=== PATIENT | male | born 1975 | race Caucasian/White ===

== ENCOUNTER 2017-04-09 22:31 | Inpatient (IN) | payer OTHER ==
[~2017-04-09] VITALS: Ht 180.3 cm; Wt 70.8 kg
[2017-04-10] VITALS (11 sets, daily range): BP systolic 110–140; BP diastolic 69–110
--- NOTE | 2017-04-10 01:11 | Emergency Room Report ---
History of Present Illness General Chief Complaint: General Complaint Source: Patient, Family Member Present Illness HPI 41YOM walk-in with request for "detox" from meth Roomate states didnt eat all weekend, was doing meth only, not sleeping Denies other medical problems Roomate states he has been having visual hallucinations, changed all his passwords, paranoid behavior Patient denies other drug use Endorses "really dehydrated," thirsty but not drinking anything. Allergies: Coded Allergies: No Known Allergies (Unverified , 04/09/17) Patient History Past Medical History: none Past Surgical History: none Pertinent Family History: none Social History: Reports: drug use Immunizations: UTD Reviewed Nursing Documentation: PMH: Agreed, PSxH: Agreed Review of Systems All Other Systems: negative except mentioned in HPI Physical Exam Vital Signs Date Time Temp Pulse Resp B/P (MAP) Pulse Ox O2 Delivery O2 Flow Rate FiO2 04/09/17 23:03 97.7 99 18 139/90 98 Room Air Sp02 EP Interpretation: reviewed, normal General Appearance: normal inspection, well appearing, no apparent distress, alert, GCS 15, non-toxic Head: normocephalic, atraumatic Eyes: bilateral eye PERRL, bilateral eye EOMI ENT: normal ENT inspection, hearing grossly normal, normal voice Neck: normal inspection, full range of motion, supple, no bony tend Respiratory: normal inspection, lungs clear, normal breath sounds, no respiratory distress, no retraction, no wheezing Cardiovascular #1: regular rate, rhythm, no edema Gastrointestinal: normal inspection, normal bowel sounds, non tender, soft, no guarding, no hernia Genitourinary: no CVA tenderness Musculoskeletal: normal inspection, back normal, normal range of motion, Arsenio' s Sign negative Neurologic: normal inspection, alert, oriented x3, responsive, cook chill technician III-XII nml as tested, speech normal Psychiatric: normal inspection, judgement/insight normal, mood/affect normal, no suicidal/homicidal ideation, no delusions Skin: normal inspection, normal color, no rash Procedures Critical Care Time Critical Care Time CC time 40 minutes 41YOM with visual hallucinations, generalized muscle pain Elevated troponin, CKMB ECG is NSR Utox positive for multiple substances ASA, heparin gtt started 2L NS given in ED CC time includes multiple reassessment bedside, review of labs, dosing of heparin, d/w hospitalist, possible Cardiology Cx Medical Decision Making Diagnostic Impression: Primary Impression: Behavioral change Additional Impressions: Amphetamine abuse Acute renal failure Qualified Codes: N17.9 - Acute kidney failure, unspecified Liver failure Qualified Codes: K72.00 - Acute and subacute hepatic failure without coma Non-ST elevated myocardial infarction ER Course VSS. Afebrile Patient NOT hallucinating now States feels more calm being in ED Denies SI, HI Doesnt have psych history Visual hallucinations likely meth related Labs: Acute liver failure, acute renal failure. K normal Elevated troponin >0.05 Was given ASA and started on heparin gtt Utox: amphet, benzos, MJ Was hydrated in ED 2L NS Admitted to ICU with Dr Guzman Serial troponin pending at time of 510am Patient remains chest pain/SOB free EKG Diagnostic Results Rate: normal Rhythm: NSR ST Segments: no acute changes ASA given to the pt in ED: No Rhythm Strip Diag. Results EP Interpretation: yes Rate: 67 Rhythm: NSR, no PVC's, no ectopy Chest X-Ray Diagnostic Results Chest X-Ray Diagnostic Results : Chest X-Ray Ordered: Yes # of Views/Limited/Complete: 1 View Indication: Chest Pain EP Interpretation: Yes Interpretation: no consolidation, no effusion, no pneumothorax, no acute cardiopulmonary disease Impression: No acute disease Electronically Signed by: Dr Shena Ji MD Last Vital Signs Date Time Temp Pulse Resp B/P (MAP) Pulse Ox O2 Delivery O2 Flow Rate FiO2 04/09/17 23:03 97.7 99 18 139/90 98 Room Air Status: improved Disposition: ADMITTED INPATIENT Condition: Critical Referrals: NOT CHOSEN IPA/,REFERRING (PCP) SHENA JI M.D. Apr 10, 2017 01:11
[2017-04-10 01:21] LABS: BASOPHILS % (AUTO) 0.5 % (0.0-2.0); EOSINOPHILS % (AUTO) 0.1 % (0.0-3.0); LYMPHOCYTES % (AUTO) 17.1 % (20.0-45.0); MEAN CORPUSCULAR HEMOGLOBIN 33.2 PG (27.0-31.0); MEAN CORPUSCULAR HGB CONC 35.8 G/DL (32.0-36.0); MEAN CORPUSCULAR VOLUME 93 FL (80-99); MEAN PLATELET VOLUME 5.9 FL (6.5-10.1); NEUTROPHILS % (AUTO) 68.3 % (45.0-75.0); PLATELET COUNT 306 K/UL (150-450); RED BLOOD COUNT 4.71 M/UL (4.70-6.10); RED CELL DISTRIBUTION WIDTH 11.3 % (11.6-14.8); WHITE BLOOD COUNT 14.5 K/UL (4.8-10.8)
[2017-04-10 02:01] LABS: ALANINE AMINOTRANSFERASE 254 U/L (12-78); ALBUMIN/GLOBULIN RATIO 1.2 (1.0-2.7); ANION GAP 20 (5-15); ASPARTATE AMINO TRANSFERASE 530 U/L (15-37); CALCIUM 7.5 MG/DL (8.5-10.1); CARBON DIOXIDE 24 MMOL/L (21-32); CHLORIDE 90 MMOL/L (98-107); CKMB 58.7 NG/ML (0.0-3.6); CREATININE 9.6 MG/DL (0.55-1.30); POTASSIUM 4.6 MMOL/L (3.5-5.1); SODIUM 134 MMOL/L (136-145); TOTAL PROTEIN 8.5 G/DL (6.4-8.2)
[2017-04-10] MEDS ORDERED: LORazepam Inj 2mg/ml 1ml IV ONE ×2 (04:00→05:45)
[2017-04-10] MEDS ORDERED: Heparin 5000 units/ml inj IV ONE (04:45)
[2017-04-10] MEDS ORDERED: Heparin 25,000u/D5W 500ml 500 ML IV SCH (04:45)
[2017-04-10] MEDS ORDERED: LORazepam Inj 2mg/ml 1ml IV PRN (06:45)
[2017-04-10] MEDS ORDERED: Mylanta II UD 30ml ORAL PRN (06:45)
[2017-04-10] MEDS ORDERED: Morphine Sulfate 2mg/ml Inj IVP PRN (06:45)
[2017-04-10] MEDS ORDERED: Miralax 17gm pkt ORAL PRN (06:45)
[2017-04-10] MEDS ORDERED: Zolpidem 5mg tab ORAL PRN (06:45)
[2017-04-10 08:32] LABS: ALANINE AMINOTRANSFERASE 195 U/L (12-78); ALBUMIN/GLOBULIN RATIO 1.1 (1.0-2.7); ANION GAP 18 (5-15); ASPARTATE AMINO TRANSFERASE 366 U/L (15-37); CALCIUM 6.5 MG/DL (8.5-10.1); CARBON DIOXIDE 21 MMOL/L (21-32); CHLORIDE 97 MMOL/L (98-107); GLOMERULAR FILTRATION RATE 6.5 mL/min (>60); MAGNESIUM 2.5 MG/DL (1.8-2.4); PHOSPHORUS 6.9 MG/DL (2.5-4.9); POTASSIUM 4.3 MMOL/L (3.5-5.1); SODIUM 136 MMOL/L (136-145); TOTAL PROTEIN 6.4 G/DL (6.4-8.2)
[2017-04-10 09:34] LABS: OSMOLALITY SERUM 317 mOsm/kg (297-317)
[2017-04-10] MEDS ORDERED: Heparin 5000 units/ml inj SUBQ SCH (10:00)
[2017-04-10 10:04] LABS: APPEARANCE,URINE CLOUDY; KETONES,URINE 1+ (NEGATIVE); LEUKOCYTE ESTERASE ,URINE NEGATIVE (NEGATIVE); NITRITE,URINE NEGATIVE (NEGATIVE); PH,URINE 5 (4.5-8.0); PROTEIN,URINE 3+ (NEGATIVE); UROBILINOGEN,URINE NORMAL MG/DL (0.0-1.0)
[2017-04-10] MEDS ORDERED: NKM (10:33)
[2017-04-10 10:41] LABS: AMORPHOUS SEDIMENT,UR MODERATE /LPF; BACTERIA,URINE FEW /HPF; SQUAMOUS EPITHELIAL CELL,UR FEW /LPF (NONE/OCC); WBC,URINE 0-2 /HPF (0 - 0)
--- NOTE | 2017-04-10 11:44 | Diagnostic Imaging Report ---
Indication: Chest pain Technique: One view of the chest Comparison: none Findings: Lungs and pleural spaces are clear. Heart size is normal. Impression: No acute process
--- NOTE | 2017-04-10 14:38 | History and Physical ---
History of Present Illness General Reason for Hospitalization: General Complaint Present Illness HPI 41YOM walk-in with request for "detox" from meth. He didn't eat all weekend, was doing meth only, not sleeping Denies other medical problems. He has been having visual hallucinations, changed all his passwords, paranoid behavior. Pt was found to be in renal failure and admitted to [facility] for further evaluation. Allergies: Coded Allergies: No Known Allergies (Unverified , 04/09/17) Medication History Scheduled No Known Medications* (NKM - No Known Medications*), 0 ., (Reported) Patient History Healthcare decision maker Resuscitation status Advanced Directive on File Past Medical/Surgical History Past Medical/Surgical History: (1) Amphetamine abuse Review of Systems All Other Systems: negative except mentioned in HPI Physical Exam General Appearance: WD/WN, no apparent distress HEENT: normocephalic, atraumatic Neck: non-tender, normal alignment Respiratory/Chest: chest wall non-tender, lungs clear Breasts: no masses Cardiovascular/Chest: normal peripheral pulses, normal rate Abdomen: normal bowel sounds Genitourinary/Rectal: normal genital exam Extremities: normal range of motion Last 24 Hour Vital Signs Date Time Temp Pulse Resp B/P (MAP) Pulse Ox O2 Delivery O2 Flow Rate FiO2 04/10/17 11:48 78 04/10/17 11:41 97.5 78 21 131/70 98 Room Air 04/10/17 11:36 77 04/10/17 10:47 98.1 76 21 122/78 96 Room Air 04/10/17 09:00 98.1 82 19 110/89 99 Room Air 04/10/17 07:20 97.7 90 22 122/69 96 Room Air 04/10/17 06:26 98.1 98 20 117/70 96 Room Air 04/10/17 05:56 98.1 92 16 127/83 97 Room Air 04/10/17 05:26 98.1 85 15 140/89 98 Room Air 04/10/17 04:30 98.1 82 16 127/110 98 Room Air 04/10/17 02:30 98.1 88 16 135/89 98 Room Air 04/10/17 00:30 98.1 95 16 130/85 99 Room Air 04/09/17 23:03 97.7 99 18 139/90 98 Room Air Intake and Output 04/10/17 04/11/17 19:00 07:00 Output Total 600 ml Balance -600 ml Output Urine Total 600 ml Laboratory Tests Test 04/10/17 00:45 04/10/17 05:05 04/10/17 07:44 04/10/17 09:30 White Blood Count 14.5 K/UL (4.8-10.8) H Red Blood Count 4.71 M/UL (4.70-6.10) Hemoglobin 15.6 G/DL (14.2-18.0) Hematocrit 43.7 % (42.0-52.0) Mean Corpuscular Volume 93 FL (80-99) Mean Corpuscular Hemoglobin 33.2 PG (27.0-31.0) H Mean Corpuscular Hemoglobin Concent 35.8 G/DL (32.0-36.0) Red Cell Distribution Width 11.3 % (11.6-14.8) L Platelet Count 306 K/UL (150-450) Mean Platelet Volume 5.9 FL (6.5-10.1) L Neutrophils (%) (Auto) 68.3 % (45.0-75.0) Lymphocytes (%) (Auto) 17.1 % (20.0-45.0) L Monocytes (%) (Auto) 14.0 % (1.0-10.0) H Eosinophils (%) (Auto) 0.1 % (0.0-3.0) Basophils (%) (Auto) 0.5 % (0.0-2.0) Activated Partial Thromboplast Time 30 SEC (23-33) Sodium Level 134 MMOL/L (136-145) L 136 MMOL/L (136-145) Potassium Level 4.6 MMOL/L (3.5-5.1) 4.3 MMOL/L (3.5-5.1) Chloride Level 90 MMOL/L (98-107) L 97 MMOL/L (98-107) L Carbon Dioxide Level 24 MMOL/L (21-32) 21 MMOL/L (21-32) Anion Gap 20 (5-15) H 18 (5-15) H Blood Urea Nitrogen 116 mg/dL (7-18) H 113 mg/dL (7-18) H Creatinine 9.6 MG/DL (0.55-1.30) H 9.0 MG/DL (0.55-1.30) H Estimat Glomerular Filtration Rate 6.0 mL/min (>60) 6.5 mL/min (>60) Glucose Level 104 MG/DL (74-106) 95 MG/DL (74-106) Calcium Level 7.5 MG/DL (8.5-10.1) L 6.5 MG/DL (8.5-10.1) L Total Bilirubin 0.9 MG/DL (0.2-1.0) 0.7 MG/DL (0.2-1.0) Aspartate Amino Transf (AST/SGOT) 530 U/L (15-37) H 366 U/L (15-37) H Alanine Aminotransferase (ALT/SGPT) 254 U/L (12-78) H 195 U/L (12-78) H Alkaline Phosphatase 113 U/L (46-116) 84 U/L (46-116) Total Creatine Kinase < 7 U/L (26-308) L 50191 U/L (26-308) H Creatine Kinase MB 58.7 NG/ML (0.0-3.6) H Creatine Kinase MB Relative Index 800.0 Troponin I 0.051 ng/mL (0.000-0.056) 0.041 ng/mL (0.000-0.056) Total Protein 8.5 G/DL (6.4-8.2) H 6.4 G/DL (6.4-8.2) Albumin 4.6 G/DL (3.4-5.0) 3.3 G/DL (3.4-5.0) L Globulin 3.9 g/dL 3.1 g/dL Albumin/Globulin Ratio 1.2 (1.0-2.7) 1.1 (1.0-2.7) Urine Opiates Screen Negative (NEGATIVE) Urine Barbiturates Screen Negative (NEGATIVE) Phencyclidine (PCP) Screen Negative (NEGATIVE) Urine Amphetamines Screen Positive (NEGATIVE) H Urine Benzodiazepines Screen Positive (NEGATIVE) H Urine Cocaine Screen Negative (NEGATIVE) Urine Marijuana (THC) Screen Positive (NEGATIVE) H Osmolality 317 mOsm/kg (297-317) Uric Acid 13.0 MG/DL (2.6-7.2) H Phosphorus Level 6.9 MG/DL (2.5-4.9) H Magnesium Level 2.5 MG/DL (1.8-2.4) H Free Thyroxine 1.29 NG/DL (0.10-1.46) Free Triiodothyronine Pending Cortisol Pending Urine Color Pale yellow Urine Appearance Cloudy Urine pH 5 (4.5-8.0) Urine Specific [place] 1.015 (1.005-1.035) Urine Protein 3+ (NEGATIVE) H Urine Glucose (UA) 1+ (NEGATIVE) H Urine Ketones 1+ (NEGATIVE) H Urine Occult Blood 5+ (NEGATIVE) H Urine Nitrite Negative (NEGATIVE) Urine Bilirubin Negative (NEGATIVE) Urine Urobilinogen Normal MG/DL (0.0-1.0) Urine Leukocyte Esterase Negative (NEGATIVE) Urine RBC 2-4 /HPF (0 - 0) H Urine WBC 0-2 /HPF (0 - 0) Urine Squamous Epithelial Cells Few /LPF (NONE/OCC) Urine Amorphous Sediment Moderate /LPF (NONE) H Urine Bacteria Few /HPF (NONE) Urine Eosinophils None seen Urine Osmolality 322 mOsm/kg (429-449) L Urine Random Sodium 34 MEQ/L (20-110) Urine Random Chloride 48 mmol/L (55-125) L Urine Potassium Timed 52 mmol/L (12-62) Height (Feet): 5 Height (Inches): 11.00 Weight (Pounds): 156 Medications Current Medications Medications (Trade) Dose Ordered Sig/Coral Route PRN Reason Start Time Stop Time Status Last Admin Dose Admin Acetaminophen (Tylenol) 650 mg Q4H PRN ORAL fever (temp>100.5 F) 04/10/17 06:45 05/10/17 06:44 Al Hydroxide/Mg Hydroxide (Mylanta II) 30 ml Q6H PRN ORAL dyspepsia 04/10/17 06:45 05/10/17 06:44 Clonidine HCl (Catapres) 0.1 mg Q4H PRN ORAL For High Blood Pressure 04/10/17 06:45 05/10/17 06:44 Dextrose (Dextrose 50%) STAT PRN IV Hypoglycemia 04/10/17 06:45 05/10/17 06:44 Heparin Sodium (Porcine) (Heparin 5000 units/ml) 5,000 units EVERY 12 HOURS SUBQ 04/10/17 21:00 05/10/17 20:59 Lorazepam (Ativan 2mg/ml 1ml) 0.5 mg Q4H PRN IV For Anxiety 04/10/17 06:45 04/17/17 06:44 Morphine Sulfate (Morphine Sulfate) 1 mg Q4H PRN IVP For Pain 04/10/17 06:45 04/17/17 06:44 Ondansetron HCl (Zofran) 4 mg Q6H PRN IVP Nausea & Vomiting 04/10/17 06:45 05/10/17 06:44 Polyethylene Glycol (Miralax) 17 gm HSPRN PRN ORAL Constipation 04/10/17 06:45 05/10/17 06:44 Sodium Chloride 1,000 ml @ 200 mls/hr Q5H IV 04/10/17 10:45 05/10/17 10:44 04/10/17 11:22 Zolpidem Tartrate (Ambien) 5 mg HSPRN PRN ORAL Insomnia 04/10/17 06:45 04/17/17 06:44 Assessment/Plan Problem List: (1) Acute encephalopathy ICD Codes: G93.40 - Encephalopathy, unspecified SNOMED: 1590657 (2) Acute renal failure ICD Codes: N17.9 - Acute kidney failure, unspecified SNOMED: 33963818 Qualifiers: Qualified Codes: N17.9 - Acute kidney failure, unspecified (3) Amphetamine abuse ICD Codes: F15.10 - Other stimulant abuse, uncomplicated SNOMED: 97484584 Assessment/Plan IV fluids check electrolytes cardiology to see dvt prophylaxis renal evaluation KEATON LABOY Apr 10, 2017 14:38
--- NOTE | 2017-04-10 15:49 | Consultation ---
Consult Note Consult Note Chief Complaint: General Complaint Source: Patient, Family Member Present Illness HPI 41YOM walk-in with request for "detox" from meth Roomate states didnt eat all weekend, was doing meth only, not sleeping Denies other medical problems Roomate states he has been having visual hallucinations, changed all his passwords, paranoid behavior Patient denies other drug use Endorses "really dehydrated," thirsty but not drinking anything. Allergies: Coded Allergies: No Known Allergies (Unverified , 04/09/17) Social History: Reports: drug use interviewed- examined- data reviewed Assessment/Plan acute renal failure- Rhabdo- Multi drug abuse abnormal lfts jones hydrate renal diet Phos binders monitor renal parameters ad CK avoid nephrotoxics GLENROY ALVAREZ Apr 10, 2017 15:49
--- NOTE | 2017-04-10 16:49 | Diagnostic Imaging Report ---
Indication: Abnormal renal function tests Technique: Grayscale and duplex images of the kidneys, retroperitoneum, and bladder were obtained. Comparison:None Findings: Right kidney measures 11.3 cm in length. Left kidney measures 11.9 cm in length. Both kidneys demonstrate normal echogenicity. No hydronephrosis. No focal abnormality. Normal inferior vena cava. Bladder is empty, contains a Mullins catheter. Impression: Negative for hydronephrosis Mullins catheter seen within empty bladder.
[2017-04-10] MEDS: D5NS 1,000 ML IV SCH ×2 (16:50→20:35)
--- NOTE | 2017-04-10 16:50 | Cardiology Progress Note ---
Assessment/Plan Assessment/Plan [id number] Objective Last 24 Hour Vital Signs Date Time Temp Pulse Resp B/P (MAP) Pulse Ox O2 Delivery O2 Flow Rate FiO2 04/10/17 16:04 74 04/10/17 11:48 78 04/10/17 11:41 97.5 78 21 131/70 98 Room Air 04/10/17 11:36 77 04/10/17 10:47 98.1 76 21 122/78 96 Room Air 04/10/17 09:00 98.1 82 19 110/89 99 Room Air 04/10/17 07:20 97.7 90 22 122/69 96 Room Air 04/10/17 06:26 98.1 98 20 117/70 96 Room Air 04/10/17 05:56 98.1 92 16 127/83 97 Room Air 04/10/17 05:26 98.1 85 15 140/89 98 Room Air 04/10/17 04:30 98.1 82 16 127/110 98 Room Air 04/10/17 02:30 98.1 88 16 135/89 98 Room Air 04/10/17 00:30 98.1 95 16 130/85 99 Room Air 04/09/17 23:03 97.7 99 18 139/90 98 Room Air Intake and Output 04/10/17 04/11/17 19:00 07:00 Output Total 600 ml Balance -600 ml Output Urine Total 600 ml Laboratory Tests Test 04/10/17 00:45 04/10/17 05:05 04/10/17 07:44 04/10/17 09:30 White Blood Count 14.5 K/UL (4.8-10.8) H Red Blood Count 4.71 M/UL (4.70-6.10) Hemoglobin 15.6 G/DL (14.2-18.0) Hematocrit 43.7 % (42.0-52.0) Mean Corpuscular Volume 93 FL (80-99) Mean Corpuscular Hemoglobin 33.2 PG (27.0-31.0) H Mean Corpuscular Hemoglobin Concent 35.8 G/DL (32.0-36.0) Red Cell Distribution Width 11.3 % (11.6-14.8) L Platelet Count 306 K/UL (150-450) Mean Platelet Volume 5.9 FL (6.5-10.1) L Neutrophils (%) (Auto) 68.3 % (45.0-75.0) Lymphocytes (%) (Auto) 17.1 % (20.0-45.0) L Monocytes (%) (Auto) 14.0 % (1.0-10.0) H Eosinophils (%) (Auto) 0.1 % (0.0-3.0) Basophils (%) (Auto) 0.5 % (0.0-2.0) Activated Partial Thromboplast Time 30 SEC (23-33) Sodium Level 134 MMOL/L (136-145) L 136 MMOL/L (136-145) Potassium Level 4.6 MMOL/L (3.5-5.1) 4.3 MMOL/L (3.5-5.1) Chloride Level 90 MMOL/L (98-107) L 97 MMOL/L (98-107) L Carbon Dioxide Level 24 MMOL/L (21-32) 21 MMOL/L (21-32) Anion Gap 20 (5-15) H 18 (5-15) H Blood Urea Nitrogen 116 mg/dL (7-18) H 113 mg/dL (7-18) H Creatinine 9.6 MG/DL (0.55-1.30) H 9.0 MG/DL (0.55-1.30) H Estimat Glomerular Filtration Rate 6.0 mL/min (>60) 6.5 mL/min (>60) Glucose Level 104 MG/DL (74-106) 95 MG/DL (74-106) Calcium Level 7.5 MG/DL (8.5-10.1) L 6.5 MG/DL (8.5-10.1) L Total Bilirubin 0.9 MG/DL (0.2-1.0) 0.7 MG/DL (0.2-1.0) Aspartate Amino Transf (AST/SGOT) 530 U/L (15-37) H 366 U/L (15-37) H Alanine Aminotransferase (ALT/SGPT) 254 U/L (12-78) H 195 U/L (12-78) H Alkaline Phosphatase 113 U/L (46-116) 84 U/L (46-116) Total Creatine Kinase < 7 U/L (26-308) L 32960 U/L (26-308) H Creatine Kinase MB 58.7 NG/ML (0.0-3.6) H Creatine Kinase MB Relative Index 800.0 Troponin I 0.051 ng/mL (0.000-0.056) 0.041 ng/mL (0.000-0.056) Total Protein 8.5 G/DL (6.4-8.2) H 6.4 G/DL (6.4-8.2) Albumin 4.6 G/DL (3.4-5.0) 3.3 G/DL (3.4-5.0) L Globulin 3.9 g/dL 3.1 g/dL Albumin/Globulin Ratio 1.2 (1.0-2.7) 1.1 (1.0-2.7) Urine Opiates Screen Negative (NEGATIVE) Urine Barbiturates Screen Negative (NEGATIVE) Phencyclidine (PCP) Screen Negative (NEGATIVE) Urine Amphetamines Screen Positive (NEGATIVE) H Urine Benzodiazepines Screen Positive (NEGATIVE) H Urine Cocaine Screen Negative (NEGATIVE) Urine Marijuana (THC) Screen Positive (NEGATIVE) H Osmolality 317 mOsm/kg (297-317) Uric Acid 13.0 MG/DL (2.6-7.2) H Phosphorus Level 6.9 MG/DL (2.5-4.9) H Magnesium Level 2.5 MG/DL (1.8-2.4) H Free Thyroxine 1.29 NG/DL (0.10-1.46) Free Triiodothyronine Pending Cortisol Pending Urine Color Pale yellow Urine Appearance Cloudy Urine pH 5 (4.5-8.0) Urine Specific [place] 1.015 (1.005-1.035) Urine Protein 3+ (NEGATIVE) H Urine Glucose (UA) 1+ (NEGATIVE) H Urine Ketones 1+ (NEGATIVE) H Urine Occult Blood 5+ (NEGATIVE) H Urine Nitrite Negative (NEGATIVE) Urine Bilirubin Negative (NEGATIVE) Urine Urobilinogen Normal MG/DL (0.0-1.0) Urine Leukocyte Esterase Negative (NEGATIVE) Urine RBC 2-4 /HPF (0 - 0) H Urine WBC 0-2 /HPF (0 - 0) Urine Squamous Epithelial Cells Few /LPF (NONE/OCC) Urine Amorphous Sediment Moderate /LPF (NONE) H Urine Bacteria Few /HPF (NONE) Urine Eosinophils None seen Urine Osmolality 322 mOsm/kg (429-449) L Urine Random Sodium 34 MEQ/L (20-110) Urine Random Chloride 48 mmol/L (55-125) L Urine Potassium Timed 52 mmol/L (12-62) MALCOLM JOHNSON Apr 10, 2017 16:50
[2017-04-10] MEDS: Pantoprazole Inj IVP SCH ×2 (16:51→23:15)
--- NOTE | 2017-04-10 17:28 | Cardiology Report ---
APPROVED REPORT EXAM: Two-dimensional and M-mode echocardiogram with Doppler and color Doppler. INDICATION Left ventricular function M-Mode DIMENSIONS IVSd0.7 (0.7-1.1cm)Left Atrium (MM)3.9 (1.6-4.0cm) LVDd5.4 (3.5-5.6cm)Aortic Root3.3 (2.0-3.7cm) PWd1.1 (0.7-1.1cm)Aortic Cusp Exc.2.1 (1.5-2.0cm) LVDs3.7 (2.5-4.0cm) PWs1.3 cm Normal left ventricular chamber size, mild global hypokinesis Left ventricular ejection fraction estimated to be 45-50%. No evidence of left ventricular hypertrophy. No evidence of pericardial or pleural effusion. All other cardiac chamber sizes are within normal limits. Focal aortic valve sclerosis with adequate cusp excursion. Normal mitral valve leaflets with normal excursion. Normal mitral annulus and aortic root. Pulmonic valve not well visualized. Normal tricuspid valve structure. IVC is normal in size and collapsible with respiration. A color flow and spectral Doppler study was performed and revealed: No aortic regurgitation. No mitral regurgitation. Mitral diastolic velocities suggest reduced left ventricular relaxation c/w diastolic dysfunction grade 1. No tricuspid regurgitation.
[2017-04-10] MEDS: Heparin 5000 units/ml inj SUBQ SCH (20:35)
[2017-04-11] VITALS (8 sets, daily range): BP systolic 101–130; BP diastolic 51–76
[2017-04-11] MEDS: D5NS 1,000 ML IV SCH ×5 (02:49→23:25)
[2017-04-11 04:47] LABS: BASOPHILS % (AUTO) 0.2 % (0.0-2.0); EOSINOPHILS % (AUTO) 0.4 % (0.0-3.0); LYMPHOCYTES % (AUTO) 15.5 % (20.0-45.0); MEAN CORPUSCULAR HEMOGLOBIN 33.3 PG (27.0-31.0); MEAN CORPUSCULAR HGB CONC 35.7 G/DL (32.0-36.0); MEAN CORPUSCULAR VOLUME 93 FL (80-99); MEAN PLATELET VOLUME 5.8 FL (6.5-10.1); MONOCYTES % (AUTO) 9.2 % (1.0-10.0); NEUTROPHILS % (AUTO) 74.7 % (45.0-75.0); PLATELET COUNT 185 K/UL (150-450); RED BLOOD COUNT 3.55 M/UL (4.70-6.10); RED CELL DISTRIBUTION WIDTH 11.4 % (11.6-14.8); WHITE BLOOD COUNT 6.3 K/UL (4.8-10.8)
[2017-04-11 05:50] LABS: ALANINE AMINOTRANSFERASE 164 U/L (12-78); ANION GAP 15 (5-15); ASPARTATE AMINO TRANSFERASE 212 U/L (15-37); CARBON DIOXIDE 19 MMOL/L (21-32); CHLORIDE 99 MMOL/L (98-107); CHOLESTEROL 117 MG/DL (< 200); CHOLESTEROL/HDL RATIO 4.5 (3.3-4.4); CREATININE 7.1 MG/DL (0.55-1.30); GLOMERULAR FILTRATION RATE 8.5 mL/min (>60); POTASSIUM 3.2 MMOL/L (3.5-5.1); SODIUM 133 MMOL/L (136-145); TOTAL PROTEIN 5.9 G/DL (6.4-8.2)
[2017-04-11 05:54] LABS: CRP QUANT 5.2 mg/dL (0.00-0.90); MAGNESIUM 2.2 MG/DL (1.8-2.4); PHOSPHORUS 5.9 MG/DL (2.5-4.9); URIC ACID 10.2 MG/DL (2.6-7.2)
--- NOTE | 2017-04-11 06:46 | Consultation ---
DATE OF CONSULTATION: 04/10/2017 CARDIOLOGY CONSULTATION CONSULTING PHYSICIAN: Cory Ochoa M.D. REFERRING PHYSICIAN: Marnie Guzman M.D. REASON FOR CONSULTATION: Methamphetamine use. HISTORY OF PRESENT ILLNESS: The patient is a 41-year-old gentleman who apparently walked into the emergency room requesting detox from methamphetamine use. The roommate says the patient has not been eating all weekend, was also only using methamphetamine and not sleeping. He really does not have any chest pain or shortness of breath. No PND. No orthopnea. No palpitations. No dizziness. No lightheadedness. No syncope or near syncope. No exertional shortness of breath. No exertional chest pains have been noted by the patient. Apparently, he has had some visual hallucinations, has been changing all of his passwords and was acting paranoid behavior and was feeling very dehydrated when he first came into the emergency room. PAST MEDICAL HISTORY: Fairly unremarkable. SOCIAL HISTORY: He has been using methamphetamine. Denies any other drug use. He smokes and is trying to quit that. REVIEW OF SYSTEMS: GASTROINTESTINAL: Negative. GENITOURINARY: Negative. PULMONARY: Negative. CONSTITUTIONAL: Negative. NEUROLOGICAL: Numbness and tingling sensation in his hands and his face. PHYSICAL EXAMINATION: GENERAL: Shows to be a young gentleman, in no apparent respiratory distress. NECK: Supple. No jugular venous distention. LUNGS: Clear to auscultation and percussion. CARDIAC: S1 is normal. S2 is normal. Regular rate and rhythm. No heaves, thrills, or gallops noted. ABDOMEN: Soft and nontender. Positive bowel sounds. EXTREMITIES: There is no clubbing, cyanosis, nor edema. NEUROLOGIC: He is awake, alert, responsive, in no apparent distress. LABORATORY AND DIAGNOSTIC DATA: He has had a chest x-ray that was performed that showed basically no acute processes. Blood tests show white count of 14.5, hemoglobin 15.6, and platelet count 206. His sodium 134, potassium 4.6, chloride 95, bicarbonate 24, BUN of 116, creatinine of 9.6, and glucose of 104. Calcium is 7.5. AST of 530, and ALT of 254. His total CK originally was less than 7, but subsequent level 7 hours later shows a total CK of 29,500. His troponin 0.051 and 0.041 also within normal limits . Total protein 6.4 and albumin of 3.3. Those levels were deferred on prior laboratory tests. Drug screen positive for methamphetamines, benzos, and marijuana. Urinalysis shows 3+ protein, 1+ glucose, 1+ ketones, 5+ blood, 2 to 4 RBCs and 0 to 2 WBCs. His telemetry shows sinus rhythm. His EKG shows normal sinus rhythm, normal QRS axis, no ST or T wave abnormalities. ASSESSMENT: 1. Methamphetamine abuse. 2. Rhabdomyolysis. 3. Myoglobinuria. 4. Acute renal failure likely secondary to above. 5. Abnormal liver function test secondary to the rhabdomyolysis to rule out liver issues. 6. Tobacco abuse history. 7. Renal failure. PLAN: Dr. Guzman, this patient was seen in cardiac consultation. The patient's cardiac enzymes are still considered within normal limits. His CK significantly elevated due to cross-reactivity may be present although not shown itself so far based on the cardiac enzymes and troponin and this is felt to be muscle injury those will be followed serially. An echocardiogram will be ordered. EKG will be followed. The patient will be monitored on telemetry. Nephrology followup is pending. Cory Ochoa M.D. DR: AUDREY JOB#: [id number] CC:
[2017-04-11 07:21] LABS: CALCIUM 6.8 MG/DL (8.5-10.1); THYROID STIMULATING HORMONE 0.469 uiU/mL (0.360-3.740)
[2017-04-11 08:10] LABS: CORTISOL LC 23.2 ug/dL (.); FREE TRIIODOTHYRONINE 3.3 pg/mL (2.0-4.4)
[2017-04-11] MEDS: Pantoprazole Inj IVP SCH (08:20)
[2017-04-11] MEDS: Heparin 5000 units/ml inj SUBQ SCH ×2 (08:21→21:51)
--- NOTE | 2017-04-11 09:27 | General Progress Note ---
Assessment/Plan Status: stable Status Narrative Cr lower Assessment/Plan status: acute renal failure- Rhabdo- Multi drug abuse abnormal lfts cardiomyopathy plan: dc jones hydrate renal diet Phos binders monitor renal parameters ad CK avoid nephrotoxics med surg transfer Subjective ROS Limited/Unobtainable: No Constitutional: Reports: other - stronger Allergies: Coded Allergies: No Known Allergies (Unverified , 04/09/17) Objective Last 24 Hour Vital Signs Date Time Temp Pulse Resp B/P (MAP) Pulse Ox O2 Delivery O2 Flow Rate FiO2 04/11/17 08:00 97.7 80 22 130/72 97 Room Air 04/11/17 04:00 97.7 74 20 129/70 100 Room Air 04/11/17 04:00 77 04/11/17 00:00 88 04/11/17 00:00 97.7 80 20 120/74 96 Room Air 04/10/17 20:00 98.2 84 20 123/74 Room Air 04/10/17 20:00 84 04/10/17 16:04 74 04/10/17 16:00 98.1 82 18 121/70 98 Room Air 04/10/17 11:48 78 04/10/17 11:41 97.5 78 21 131/70 98 Room Air 04/10/17 11:36 77 04/10/17 10:47 98.1 76 21 122/78 96 Room Air Laboratory Tests 04/10/17 09:30: Urine Color Pale yellow, Urine Appearance Cloudy, Urine pH 5, Urine Specific Radnor 1.015, Urine Protein 3+H, Urine Glucose (UA) 1+H, Urine Ketones 1+H, Urine Occult Blood 5+H, Urine Nitrite Negative, Urine Bilirubin Negative, Urine Urobilinogen Normal, Urine Leukocyte Esterase Negative, Urine RBC 2-4H, Urine WBC 0-2, Urine Squamous Epithelial Cells Few, Urine Amorphous Sediment ModerateH , Urine Bacteria Few, Urine Eosinophils None seen, Urine Osmolality 322L, Urine Random Sodium 34, Urine Random Chloride 48L, Urine Potassium Timed 52 04/11/17 03:10: White Blood Count 6.3#, Red Blood Count 3.55L, Hemoglobin 11.8L, Hematocrit 33.1L, Mean Corpuscular Volume 93, Mean Corpuscular Hemoglobin 33.3H, Mean Corpuscular Hemoglobin Concent 35.7, Red Cell Distribution Width 11.4L, Platelet Count 185, Mean Platelet Volume 5.8L, Neutrophils (%) (Auto) 74.7, Lymphocytes (%) (Auto) 15.5L, Monocytes (%) (Auto) 9.2, Eosinophils (%) (Auto) 0.4, Basophils (%) (Auto) 0.2, Sodium Level 133L, Potassium Level 3.2L, Chloride Level 99, Carbon Dioxide Level 19L, Anion Gap 15, Blood Urea Nitrogen 104H, Creatinine 7.1H, Estimat Glomerular Filtration Rate 8.5, Glucose Level 121H, Hemoglobin A1c [Pending], Uric Acid 10.2H, Calcium Level 6.8L, Phosphorus Level 5.9H, Magnesium Level 2.2, Total Bilirubin 0.5, Gamma Glutamyl Transpeptidase 32, Aspartate Amino Transf (AST/SGOT) 212H, Alanine Aminotransferase (ALT/SGPT) 164H, Alkaline Phosphatase 80, Total Creatine Kinase 69631V, C-Reactive Protein, Quantitative 5.2H, Pro-B-Type Natriuretic Peptide 1740H, Total Protein 5.9L, Albumin 2.9L, Globulin 3.0, Albumin/Globulin Ratio 1.0, Triglycerides Level 179, Cholesterol Level 117, LDL Cholesterol 69, HDL Cholesterol 26L, Cholesterol/HDL Ratio 4.5H, Thyroid Stimulating Hormone ( TSH) 0.469 Height (Feet): 5 Height (Inches): 11.00 Weight (Pounds): 156 General Appearance: no apparent distress Cardiovascular: normal rate Abdomen: soft Objective no signs of chf GLENROY ALVAREZ Apr 11, 2017 09:27
[2017-04-11] MEDS ORDERED: KCl 10% 40mEq/30ml liquid ORAL SCH (09:30)
[2017-04-11] MEDS ORDERED: Tamsulosin 0.4mg cap ORAL SCH (09:30)
[2017-04-11 10:19] LABS: HEMOGLOBIN A1C 6.1 % (4.5-6.2)
[2017-04-11] MEDS ORDERED: LORazepam Inj 2mg/ml 1ml IV PRN (12:00)
[2017-04-11] MEDS ORDERED: Morphine Sulfate 2mg/ml Inj IVP PRN (12:00)
--- NOTE | 2017-04-11 12:23 | Pulmonology Progress Note ---
Assessment/Plan Problems: (1) Acute encephalopathy (2) Acute renal failure (3) Amphetamine abuse Assessment/Plan improving renal function better All medications and treatment were reviewed. dvt prophylaxis tolerating diet. Subjective ROS Limited/Unobtainable: No Constitutional: Reports: no symptoms HEENT: Repors: no symptoms Respiratory: Reports: no symptoms Allergies: Coded Allergies: No Known Allergies (Unverified , 04/09/17) Objective Last 24 Hour Vital Signs Date Time Temp Pulse Resp B/P (MAP) Pulse Ox O2 Delivery O2 Flow Rate FiO2 04/11/17 12:06 96.5 68 21 127/76 100 Room Air 04/11/17 08:00 97.7 80 22 130/72 97 Room Air 04/11/17 08:00 77 04/11/17 04:00 97.7 74 20 129/70 100 Room Air 04/11/17 04:00 77 04/11/17 00:00 88 04/11/17 00:00 97.7 80 20 120/74 96 Room Air 04/10/17 20:00 98.2 84 20 123/74 Room Air 04/10/17 20:00 84 04/10/17 16:04 74 04/10/17 16:00 98.1 82 18 121/70 98 Room Air General Appearance: WD/WN HEENT: normocephalic, atraumatic Respiratory/Chest: chest wall non-tender, lungs clear Cardiovascular: normal peripheral pulses, normal rate Abdomen: normal bowel sounds, no organomegaly Extremities: no cyanosis Skin: no rash, no ulcers Laboratory Tests 04/11/17 03:10: White Blood Count 6.3#, Red Blood Count 3.55L, Hemoglobin 11.8L, Hematocrit 33.1L, Mean Corpuscular Volume 93, Mean Corpuscular Hemoglobin 33.3H, Mean Corpuscular Hemoglobin Concent 35.7, Red Cell Distribution Width 11.4L, Platelet Count 185, Mean Platelet Volume 5.8L, Neutrophils (%) (Auto) 74.7, Lymphocytes (%) (Auto) 15.5L, Monocytes (%) (Auto) 9.2, Eosinophils (%) (Auto) 0.4, Basophils (%) (Auto) 0.2, Sodium Level 133L, Potassium Level 3.2L, Chloride Level 99, Carbon Dioxide Level 19L, Anion Gap 15, Blood Urea Nitrogen 104H, Creatinine 7.1H, Estimat Glomerular Filtration Rate 8.5, Glucose Level 121H, Hemoglobin A1c 6.1, Uric Acid 10.2H, Calcium Level 6.8L, Phosphorus Level 5.9H, Magnesium Level 2.2, Total Bilirubin 0.5, Gamma Glutamyl Transpeptidase 32 , Aspartate Amino Transf (AST/SGOT) 212H, Alanine Aminotransferase (ALT/SGPT) 164H, Alkaline Phosphatase 80, Total Creatine Kinase 00521H, C-Reactive Protein , Quantitative 5.2H, Pro-B-Type Natriuretic Peptide 1740H, Total Protein 5.9L, Albumin 2.9L, Globulin 3.0, Albumin/Globulin Ratio 1.0, Triglycerides Level 179 , Cholesterol Level 117, LDL Cholesterol 69, HDL Cholesterol 26L, Cholesterol/ HDL Ratio 4.5H, Thyroid Stimulating Hormone (TSH) 0.469 Current Medications Medications (Trade) Dose Ordered Sig/Coral Route PRN Reason Start Time Stop Time Status Last Admin Dose Admin Acetaminophen (Tylenol) 650 mg Q4H PRN ORAL fever (temp>100.5 F) 04/11/17 12:00 05/10/17 11:59 Clonidine HCl (Catapres) 0.1 mg Q4H PRN ORAL SBP > 160 mmHg 04/11/17 14:45 05/10/17 06:44 Dextrose (Dextrose 50%) STAT PRN IV Hypoglycemia 04/11/17 11:30 05/11/17 11:29 Dextrose/Sodium Chloride 1,000 ml @ 200 mls/hr Q5H IV 04/11/17 12:00 05/10/17 11:59 Heparin Sodium (Porcine) (Heparin 5000 units/ml) 5,000 units EVERY 12 HOURS SUBQ 04/11/17 21:00 05/10/17 20:59 Lorazepam (Ativan 2mg/ml 1ml) 0.5 mg Q4H PRN IV For Anxiety 04/11/17 12:00 04/17/17 11:59 Morphine Sulfate (Morphine Sulfate) 1 mg Q4H PRN IVP PAIN 4-10 04/11/17 12:00 04/17/17 11:59 Ondansetron HCl (Zofran) 4 mg Q6H PRN IVP Nausea & Vomiting 04/11/17 12:45 05/10/17 06:44 Polyethylene Glycol (Miralax) 17 gm HSPRN PRN ORAL Constipation 04/11/17 21:00 05/11/17 20:59 Potassium Chloride (K-Dur) 40 meq DAILY ORAL 04/12/17 09:00 05/11/17 09:59 Sevelamer Carbonate (Renvela) 800 mg THREE TIMES A DAY ORAL 04/11/17 13:00 05/11/17 12:59 Tamsulosin HCl (Flomax) 0.4 mg BID ORAL 04/11/17 18:00 05/11/17 09:29 Zolpidem Tartrate (Ambien) 5 mg HSPRN PRN ORAL Insomnia 04/11/17 21:00 04/18/17 20:59 KEATON LABOY Apr 11, 2017 12:23
[2017-04-11] MEDS: Tamsulosin 0.4mg cap ORAL SCH (17:29)
--- NOTE | 2017-04-11 18:58 | Cardiology Progress Note ---
Assessment/Plan Assessment/Plan 1. Methamphetamine abuse. 2. Rhabdomyolysis. 3. Myoglobinuria. 4. Acute renal failure likely secondary to above. 5. Abnormal liver function test secondary to the rhabdomyolysis to rule out liver issues. 6. Tobacco abuse history. 7. Renal failure. 8. Mild systolic dysfunction pt informed of abn cardiac function with strong recommendation again any furth meth use !!! renal function improved iv hydration on going watch for chf if dcd i have recommneded that he fu with seed collector in 2-3 weeks if he wishes he may fu in my office Subjective Cardiovascular: Reports: lightheadedness, Denies: chest pain, palpitations Respiratory: Denies: shortness of breath Gastrointestinal/Abdominal: Denies: abdominal pain Objective Last 24 Hour Vital Signs Date Time Temp Pulse Resp B/P (MAP) Pulse Ox O2 Delivery O2 Flow Rate FiO2 04/11/17 16:15 98.0 81 19 128/62 96 Room Air 04/11/17 12:06 96.5 68 21 127/76 100 Room Air 04/11/17 12:00 97.2 67 20 127/57 99 Room Air 04/11/17 08:00 97.7 80 22 130/72 97 Room Air 04/11/17 08:00 77 04/11/17 04:00 97.7 74 20 129/70 100 Room Air 04/11/17 04:00 77 04/11/17 00:00 88 04/11/17 00:00 97.7 80 20 120/74 96 Room Air 04/10/17 20:00 98.2 84 20 123/74 Room Air 04/10/17 20:00 84 General Appearance: no apparent distress, alert Neck: no JVD Cardiovascular: normal rate, regular rhythm Respiratory/Chest: lungs clear Abdomen: normal bowel sounds, non tender, soft Extremities: no swelling Intake and Output 04/11/17 04/12/17 19:00 07:00 Intake Total 1140 ml Output Total 1500 ml Balance -360 ml Intake Oral 940 ml IV Total 200 ml Output Urine Total 1500 ml # Voids 3 Laboratory Tests Test 04/11/17 03:10 White Blood Count 6.3 K/UL (4.8-10.8) # Red Blood Count 3.55 M/UL (4.70-6.10) L Hemoglobin 11.8 G/DL (14.2-18.0) L Hematocrit 33.1 % (42.0-52.0) L Mean Corpuscular Volume 93 FL (80-99) Mean Corpuscular Hemoglobin 33.3 PG (27.0-31.0) H Mean Corpuscular Hemoglobin Concent 35.7 G/DL (32.0-36.0) Red Cell Distribution Width 11.4 % (11.6-14.8) L Platelet Count 185 K/UL (150-450) Mean Platelet Volume 5.8 FL (6.5-10.1) L Neutrophils (%) (Auto) 74.7 % (45.0-75.0) Lymphocytes (%) (Auto) 15.5 % (20.0-45.0) L Monocytes (%) (Auto) 9.2 % (1.0-10.0) Eosinophils (%) (Auto) 0.4 % (0.0-3.0) Basophils (%) (Auto) 0.2 % (0.0-2.0) Sodium Level 133 MMOL/L (136-145) L Potassium Level 3.2 MMOL/L (3.5-5.1) L Chloride Level 99 MMOL/L (98-107) Carbon Dioxide Level 19 MMOL/L (21-32) L Anion Gap 15 (5-15) Blood Urea Nitrogen 104 mg/dL (7-18) H Creatinine 7.1 MG/DL (0.55-1.30) H Estimat Glomerular Filtration Rate 8.5 mL/min (>60) Glucose Level 121 MG/DL (74-106) H Hemoglobin A1c 6.1 % (4.5-6.2) Uric Acid 10.2 MG/DL (2.6-7.2) H Calcium Level 6.8 MG/DL (8.5-10.1) L Phosphorus Level 5.9 MG/DL (2.5-4.9) H Magnesium Level 2.2 MG/DL (1.8-2.4) Total Bilirubin 0.5 MG/DL (0.2-1.0) Gamma Glutamyl Transpeptidase 32 U/L (5-85) Aspartate Amino Transf (AST/SGOT) 212 U/L (15-37) H Alanine Aminotransferase (ALT/SGPT) 164 U/L (12-78) H Alkaline Phosphatase 80 U/L (46-116) Total Creatine Kinase 69118 U/L (26-308) H C-Reactive Protein, Quantitative 5.2 mg/dL (0.00-0.90) H Pro-B-Type Natriuretic Peptide 1740 (0-125) H Total Protein 5.9 G/DL (6.4-8.2) L Albumin 2.9 G/DL (3.4-5.0) L Globulin 3.0 g/dL Albumin/Globulin Ratio 1.0 (1.0-2.7) Triglycerides Level 179 MG/DL (0-200) Cholesterol Level 117 MG/DL (< 200) LDL Cholesterol 69 mg/dL (<100) HDL Cholesterol 26 MG/DL (40-60) L Cholesterol/HDL Ratio 4.5 (3.3-4.4) H Thyroid Stimulating Hormone (TSH) 0.469 uiU/mL (0.360-3.740) MALCOLM JOHNSON Apr 11, 2017 18:58
[2017-04-11] MEDS ORDERED: Miralax 17gm pkt ORAL PRN (21:00)
[2017-04-11] MEDS ORDERED: Zolpidem 5mg tab ORAL PRN (21:00)
[2017-04-12 04:00] VITALS: BP 120/64
[2017-04-12] MEDS: D5NS 1,000 ML IV SCH ×4 (04:18→21:00)
[2017-04-12 08:00] VITALS: BP 129/72
[2017-04-12 08:08] LABS: BASOPHILS % (AUTO) 0.4 % (0.0-2.0); EOSINOPHILS % (AUTO) 0.9 % (0.0-3.0); LYMPHOCYTES % (AUTO) 30.8 % (20.0-45.0); MEAN CORPUSCULAR HEMOGLOBIN 32.7 PG (27.0-31.0); MEAN CORPUSCULAR HGB CONC 34.3 G/DL (32.0-36.0); MEAN CORPUSCULAR VOLUME 95 FL (80-99); MEAN PLATELET VOLUME 5.9 FL (6.5-10.1); MONOCYTES % (AUTO) 10.9 % (1.0-10.0); PLATELET COUNT 180 K/UL (150-450); RED BLOOD COUNT 3.49 M/UL (4.70-6.10); RED CELL DISTRIBUTION WIDTH 11.8 % (11.6-14.8); WHITE BLOOD COUNT 4.7 K/UL (4.8-10.8)
[2017-04-12 08:47] LABS: ALANINE AMINOTRANSFERASE 159 U/L (12-78); ALBUMIN/GLOBULIN RATIO 0.9 (1.0-2.7); ANION GAP 9 (5-15); ASPARTATE AMINO TRANSFERASE 135 U/L (15-37); CALCIUM 7.8 MG/DL (8.5-10.1); CARBON DIOXIDE 24 MMOL/L (21-32); CHLORIDE 109 MMOL/L (98-107); CREATININE 4.2 MG/DL (0.55-1.30); CRP QUANT 3.2 mg/dL (0.00-0.90); GLOMERULAR FILTRATION RATE 15.6 mL/min (>60); MAGNESIUM 1.7 MG/DL (1.8-2.4); PHOSPHORUS 3.7 MG/DL (2.5-4.9); POTASSIUM 4.2 MMOL/L (3.5-5.1); SODIUM 142 MMOL/L (136-145); TOTAL PROTEIN 6.2 G/DL (6.4-8.2); URIC ACID 6.5 MG/DL (2.6-7.2)
[2017-04-12] MEDS: Tamsulosin 0.4mg cap ORAL SCH ×2 (09:16→18:22)
[2017-04-12] MEDS: Heparin 5000 units/ml inj SUBQ SCH ×2 (09:19→20:42)
[2017-04-12 12:00] VITALS: BP 146/86
--- NOTE | 2017-04-12 14:00 | Pulmonology Progress Note ---
Assessment/Plan Assessment/Plan ASSESSMENT acute toxic metabolic encephalopathy ( likely due to drug abuse, acute kidney failure) rhabdomyolysis acute renal failure due to rhabdo acute liver failure likely due to rhabdo methamphetamine abuse tobacco abuse cardiomyopathy with EF 45% myoglobinuria PLAN OF CARE off tele, on [place] floor now IVF nephro and cardio follows ECHO with EF 45-50% fup with cardio as outpatient in 2-3- weeks renal US negative renal parameters, CK trending down avoid nephrotoxic job placement counselor on abstinence from street drugs declined Nicotine patch job placement counselor on smoking cessation, will first try abstinence from drugs LFT trending down, likely due to rhabdo as well DVT prophayxlis bowel regimen watch IV fluids ( with hx of cardiomyopathy) case discussed and evaluated by supervising physician Subjective Allergies: Coded Allergies: No Known Allergies (Unverified , 04/09/17) Subjective renal parameters improving denies chest pain, SOB, palpitations, abdominal pain reports generalized weakness Objective Last 24 Hour Vital Signs Date Time Temp Pulse Resp B/P (MAP) Pulse Ox O2 Delivery O2 Flow Rate FiO2 04/12/17 12:00 98.2 58 20 146/86 98 Room Air 04/12/17 08:00 98.1 78 20 129/72 97 Room Air 04/12/17 04:00 98.7 75 20 120/64 97 Room Air 04/11/17 23:43 98.1 83 20 101/51 94 Room Air 04/11/17 20:00 99.0 73 20 121/73 97 Room Air 04/11/17 16:15 98.0 81 19 128/62 96 Room Air Intake and Output 04/12/17 04/13/17 19:00 07:00 Intake Total 200 ml Balance 200 ml IV Total 200 ml General Appearance: WD/WN, no acute distress HEENT: normocephalic, atraumatic, anicteric, mucous membranes moist, PERRL Respiratory/Chest: chest wall non-tender, lungs clear, normal breath sounds, no respiratory distress, no accessory muscle use Cardiovascular: normal peripheral pulses, normal rate, regular rhythm Abdomen: normal bowel sounds, soft, non tender, non distended Extremities: no edema, pedal pulses normal Neurologic/Psychiatric: no motor/sensory deficits, alert, oriented x 3, responsive, normal mood/affect Musculoskeletal: normal muscle bulk Laboratory Tests 04/12/17 07:25: White Blood Count 4.7L, Red Blood Count 3.49L, Hemoglobin 11.4L, Hematocrit 33.3L, Mean Corpuscular Volume 95, Mean Corpuscular Hemoglobin 32.7H, Mean Corpuscular Hemoglobin Concent 34.3, Red Cell Distribution Width 11.8, Platelet Count 180, Mean Platelet Volume 5.9L, Neutrophils (%) (Auto) 57.0, Lymphocytes ( %) (Auto) 30.8, Monocytes (%) (Auto) 10.9H, Eosinophils (%) (Auto) 0.9, Basophils (%) (Auto) 0.4, Erythrocyte Sedimentation Rate 43H, Sodium Level 142, Potassium Level 4.2, Chloride Level 109H, Carbon Dioxide Level 24, Anion Gap 9, Blood Urea Nitrogen 62H, Creatinine 4.2H, Estimat Glomerular Filtration Rate 15.6, Glucose Level 104, Uric Acid 6.5, Calcium Level 7.8L, Phosphorus Level 3.7 , Magnesium Level 1.7L, Total Bilirubin 0.5, Gamma Glutamyl Transpeptidase 40, Aspartate Amino Transf (AST/SGOT) 135H, Alanine Aminotransferase (ALT/SGPT) 159H , Alkaline Phosphatase 86, Total Creatine Kinase 4900H, C-Reactive Protein, Quantitative 3.2H, Pro-B-Type Natriuretic Peptide 2316H, Total Protein 6.2L, Albumin 2.9L, Globulin 3.3, Albumin/Globulin Ratio 0.9L Current Medications Medications (Trade) Dose Ordered Sig/Coral Route PRN Reason Start Time Stop Time Status Last Admin Dose Admin Acetaminophen (Tylenol) 650 mg Q4H PRN ORAL fever (temp>100.5 F) 04/11/17 12:00 05/10/17 11:59 Clonidine HCl (Catapres) 0.1 mg Q4H PRN ORAL SBP > 160 mmHg 04/11/17 14:45 05/10/17 06:44 Dextrose (Dextrose 50%) STAT PRN IV Hypoglycemia 04/11/17 11:30 05/11/17 11:29 Dextrose/Sodium Chloride 1,000 ml @ 125 mls/hr Q8H IV 04/12/17 12:00 05/12/17 11:59 04/12/17 09:20 Heparin Sodium (Porcine) (Heparin 5000 units/ml) 5,000 units EVERY 12 HOURS SUBQ 04/11/17 21:00 05/10/17 20:59 04/12/17 09:19 Lorazepam (Ativan 2mg/ml 1ml) 0.5 mg Q4H PRN IV For Anxiety 04/11/17 12:00 04/17/17 11:59 Morphine Sulfate (Morphine Sulfate) 1 mg Q4H PRN IVP PAIN 4-10 04/11/17 12:00 04/17/17 11:59 Ondansetron HCl (Zofran) 4 mg Q6H PRN IVP Nausea & Vomiting 04/11/17 12:45 05/10/17 06:44 Polyethylene Glycol (Miralax) 17 gm HSPRN PRN ORAL Constipation 04/11/17 21:00 05/11/17 20:59 Tamsulosin HCl (Flomax) 0.4 mg BID ORAL 04/11/17 18:00 05/11/17 09:29 04/12/17 09:16 Zolpidem Tartrate (Ambien) 5 mg HSPRN PRN ORAL Insomnia 04/11/17 21:00 04/18/17 20:59 Yariel RazaMarya espinosa NP Apr 12, 2017 14:00
--- NOTE | 2017-04-12 14:13 | General Progress Note ---
Assessment/Plan Status: stable Assessment/Plan status: acute renal failure- Rhabdo- Multi drug abuse abnormal lfts cardiomyopathy plan: dc jones hydrate renal diet Phos binders monitor renal parameters ad CK avoid nephrotoxics med surg transfer Subjective ROS Limited/Unobtainable: No Allergies: Coded Allergies: No Known Allergies (Unverified , 04/09/17) Objective Last 24 Hour Vital Signs Date Time Temp Pulse Resp B/P (MAP) Pulse Ox O2 Delivery O2 Flow Rate FiO2 04/12/17 12:00 98.2 58 20 146/86 98 Room Air 04/12/17 08:00 98.1 78 20 129/72 97 Room Air 04/12/17 04:00 98.7 75 20 120/64 97 Room Air 04/11/17 23:43 98.1 83 20 101/51 94 Room Air 04/11/17 20:00 99.0 73 20 121/73 97 Room Air 04/11/17 16:15 98.0 81 19 128/62 96 Room Air Intake and Output 04/12/17 04/13/17 19:00 07:00 Intake Total 200 ml Balance 200 ml IV Total 200 ml Laboratory Tests 04/12/17 07:25: White Blood Count 4.7L, Red Blood Count 3.49L, Hemoglobin 11.4L, Hematocrit 33.3L, Mean Corpuscular Volume 95, Mean Corpuscular Hemoglobin 32.7H, Mean Corpuscular Hemoglobin Concent 34.3, Red Cell Distribution Width 11.8, Platelet Count 180, Mean Platelet Volume 5.9L, Neutrophils (%) (Auto) 57.0, Lymphocytes ( %) (Auto) 30.8, Monocytes (%) (Auto) 10.9H, Eosinophils (%) (Auto) 0.9, Basophils (%) (Auto) 0.4, Erythrocyte Sedimentation Rate 43H, Sodium Level 142, Potassium Level 4.2, Chloride Level 109H, Carbon Dioxide Level 24, Anion Gap 9, Blood Urea Nitrogen 62H, Creatinine 4.2H, Estimat Glomerular Filtration Rate 15.6, Glucose Level 104, Uric Acid 6.5, Calcium Level 7.8L, Phosphorus Level 3.7 , Magnesium Level 1.7L, Total Bilirubin 0.5, Gamma Glutamyl Transpeptidase 40, Aspartate Amino Transf (AST/SGOT) 135H, Alanine Aminotransferase (ALT/SGPT) 159H , Alkaline Phosphatase 86, Total Creatine Kinase 4900H, C-Reactive Protein, Quantitative 3.2H, Pro-B-Type Natriuretic Peptide 2316H, Total Protein 6.2L, Albumin 2.9L, Globulin 3.3, Albumin/Globulin Ratio 0.9L Height (Feet): 5 Height (Inches): 11.00 Weight (Pounds): 156 General Appearance: no apparent distress Objective no signs of chf GLENROY ALVAREZ Apr 12, 2017 14:13
[2017-04-12 16:00] VITALS: BP 127/79
--- NOTE | 2017-04-12 18:01 | Cardiology Progress Note ---
Assessment/Plan Assessment/Plan 1. Methamphetamine abuse. 2. Rhabdomyolysis. 3. Myoglobinuria. 4. Acute renal failure likely secondary to above. 5. Abnormal liver function test secondary to the rhabdomyolysis to rule out liver issues. 6. Tobacco abuse history. 7. Renal failure. 8. Mild systolic dysfunction pt informed of abn cardiac function with strong recommendation again any furth meth use !!! 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 in 2-3 weeks if he wishes he may fu in my office Subjective Cardiovascular: Denies: chest pain, lightheadedness Respiratory: Denies: SOB with excertion Genitourinary: Denies: burning Objective Last 24 Hour Vital Signs Date Time Temp Pulse Resp B/P (MAP) Pulse Ox O2 Delivery O2 Flow Rate FiO2 04/12/17 16:00 98.2 61 20 127/79 97 Room Air 04/12/17 12:00 98.2 58 20 146/86 98 Room Air 04/12/17 08:00 98.1 78 20 129/72 97 Room Air 04/12/17 04:00 98.7 75 20 120/64 97 Room Air 04/11/17 23:43 98.1 83 20 101/51 94 Room Air 04/11/17 20:00 99.0 73 20 121/73 97 Room Air General Appearance: no apparent distress Cardiovascular: normal rate, regular rhythm Respiratory/Chest: lungs clear, normal breath sounds Abdomen: normal bowel sounds, non tender, soft Extremities: no swelling Intake and Output 04/12/17 04/13/17 19:00 07:00 Intake Total 1400 ml Balance 1400 ml IV Total 1400 ml Laboratory Tests Test 04/12/17 07:25 White Blood Count 4.7 K/UL (4.8-10.8) L Red Blood Count 3.49 M/UL (4.70-6.10) L Hemoglobin 11.4 G/DL (14.2-18.0) L Hematocrit 33.3 % (42.0-52.0) L Mean Corpuscular Volume 95 FL (80-99) Mean Corpuscular Hemoglobin 32.7 PG (27.0-31.0) H Mean Corpuscular Hemoglobin Concent 34.3 G/DL (32.0-36.0) Red Cell Distribution Width 11.8 % (11.6-14.8) Platelet Count 180 K/UL (150-450) Mean Platelet Volume 5.9 FL (6.5-10.1) L Neutrophils (%) (Auto) 57.0 % (45.0-75.0) Lymphocytes (%) (Auto) 30.8 % (20.0-45.0) Monocytes (%) (Auto) 10.9 % (1.0-10.0) H Eosinophils (%) (Auto) 0.9 % (0.0-3.0) Basophils (%) (Auto) 0.4 % (0.0-2.0) Erythrocyte Sedimentation Rate 43 MM/HR (0-15) H Sodium Level 142 MMOL/L (136-145) Potassium Level 4.2 MMOL/L (3.5-5.1) Chloride Level 109 MMOL/L (98-107) H Carbon Dioxide Level 24 MMOL/L (21-32) Anion Gap 9 (5-15) Blood Urea Nitrogen 62 mg/dL (7-18) H Creatinine 4.2 MG/DL (0.55-1.30) H Estimat Glomerular Filtration Rate 15.6 mL/min (>60) Glucose Level 104 MG/DL (74-106) Uric Acid 6.5 MG/DL (2.6-7.2) Calcium Level 7.8 MG/DL (8.5-10.1) L Phosphorus Level 3.7 MG/DL (2.5-4.9) Magnesium Level 1.7 MG/DL (1.8-2.4) L Total Bilirubin 0.5 MG/DL (0.2-1.0) Gamma Glutamyl Transpeptidase 40 U/L (5-85) Aspartate Amino Transf (AST/SGOT) 135 U/L (15-37) H Alanine Aminotransferase (ALT/SGPT) 159 U/L (12-78) H Alkaline Phosphatase 86 U/L (46-116) Total Creatine Kinase 4900 U/L (26-308) H C-Reactive Protein, Quantitative 3.2 mg/dL (0.00-0.90) H Pro-B-Type Natriuretic Peptide 2316 (0-125) H Total Protein 6.2 G/DL (6.4-8.2) L Albumin 2.9 G/DL (3.4-5.0) L Globulin 3.3 g/dL Albumin/Globulin Ratio 0.9 (1.0-2.7) L MALCOLM JOHNSON Apr 12, 2017 18:01
[2017-04-12 19:53] VITALS: BP 142/79
--- NOTE | 2017-04-12 23:04 | Cardiology Report ---
APPROVED REPORT EKG Measurement Heart [id number] Normal sinus rhythm Normal ECG
--- NOTE | 2017-04-12 23:51 | General Progress Note ---
Assessment/Plan Status: stable, progressing Subjective Constitutional: Reports: malaise, weakness Neurologic/Psychiatric: Reports: anxiety, depressed, emotional problems Allergies: Coded Allergies: No Known Allergies (Unverified , 04/09/17) Objective Last 24 Hour Vital Signs Date Time Temp Pulse Resp B/P (MAP) Pulse Ox O2 Delivery O2 Flow Rate FiO2 04/12/17 19:53 98.1 66 18 142/79 98 Room Air 04/12/17 16:00 98.2 61 20 127/79 97 Room Air 04/12/17 12:00 98.2 58 20 146/86 98 Room Air 04/12/17 08:00 98.1 78 20 129/72 97 Room Air 04/12/17 04:00 98.7 75 20 120/64 97 Room Air Intake and Output 04/12/17 04/13/17 19:00 07:00 Intake Total 1720 ml Balance 1720 ml Intake Oral 320 ml IV Total 1400 ml # Voids 5 Laboratory Tests 04/12/17 07:25: White Blood Count 4.7L, Red Blood Count 3.49L, Hemoglobin 11.4L, Hematocrit 33.3L, Mean Corpuscular Volume 95, Mean Corpuscular Hemoglobin 32.7H, Mean Corpuscular Hemoglobin Concent 34.3, Red Cell Distribution Width 11.8, Platelet Count 180, Mean Platelet Volume 5.9L, Neutrophils (%) (Auto) 57.0, Lymphocytes ( %) (Auto) 30.8, Monocytes (%) (Auto) 10.9H, Eosinophils (%) (Auto) 0.9, Basophils (%) (Auto) 0.4, Erythrocyte Sedimentation Rate 43H, Sodium Level 142, Potassium Level 4.2, Chloride Level 109H, Carbon Dioxide Level 24, Anion Gap 9, Blood Urea Nitrogen 62H, Creatinine 4.2H, Estimat Glomerular Filtration Rate 15.6, Glucose Level 104, Uric Acid 6.5, Calcium Level 7.8L, Phosphorus Level 3.7 , Magnesium Level 1.7L, Total Bilirubin 0.5, Gamma Glutamyl Transpeptidase 40, Aspartate Amino Transf (AST/SGOT) 135H, Alanine Aminotransferase (ALT/SGPT) 159H , Alkaline Phosphatase 86, Total Creatine Kinase 4900H, C-Reactive Protein, Quantitative 3.2H, Pro-B-Type Natriuretic Peptide 2316H, Total Protein 6.2L, Albumin 2.9L, Globulin 3.3, Albumin/Globulin Ratio 0.9L Height (Feet): 5 Height (Inches): 11.00 Weight (Pounds): 156 General Appearance: no apparent distress, alert Neurologic: alert, oriented x 3, responsive, depressed affect Ian Latham M.D. Apr 12, 2017 23:51
--- NOTE | 2017-04-12 23:51 | Consultation ---
History of Present Illness General Date patient seen: Apr 10, 2017 Chief Complaint: General Complaint Present Illness HPI [id number] walk-in with request for "detox" from meth. He didn't eat all weekend, was doing meth only, not sleeping Denies other medical problems. He has been having visual hallucinations, changed all his passwords, paranoid behavior. Pt was found to be in renal failure and admitted to [facility] for further evaluation. the pt stated that he is severely anxious due to his current medical condition. he denied si Allergies: Coded Allergies: No Known Allergies (Unverified , 04/09/17) Medication History Scheduled No Known Medications* (NKM - No Known Medications*), 0 ., (Reported) Patient History History Provided By: Patient, Medical Record, PMD Healthcare decision maker Resuscitation status Advanced Directive on File Past Medical/Surgical History Past Medical/Surgical History: (1) Behavioral change (2) Liver failure (3) Non-ST elevated myocardial infarction (4) Acute renal failure (5) Amphetamine abuse (6) Acute encephalopathy (7) NSTEMI (non-ST elevated myocardial infarction) Review of Systems Constitutional: Reports: malaise, weakness Psychiatric: Reports: prior hx, anxiety, depressed feelings, emotional problems Physical Exam General Appearance: no apparent distress, alert, thin Neurologic: alert, oriented x 3, responsive, depressed affect Last 24 Hour Vital Signs Date Time Temp Pulse Resp B/P (MAP) Pulse Ox O2 Delivery O2 Flow Rate FiO2 04/12/17 19:53 98.1 66 18 142/79 98 Room Air 04/12/17 16:00 98.2 61 20 127/79 97 Room Air 04/12/17 12:00 98.2 58 20 146/86 98 Room Air 04/12/17 08:00 98.1 78 20 129/72 97 Room Air 04/12/17 04:00 98.7 75 20 120/64 97 Room Air Intake and Output 04/12/17 04/13/17 19:00 07:00 Intake Total 1720 ml Balance 1720 ml Intake Oral 320 ml IV Total 1400 ml # Voids 5 Laboratory Tests Test 04/12/17 07:25 White Blood Count 4.7 K/UL (4.8-10.8) L Red Blood Count 3.49 M/UL (4.70-6.10) L Hemoglobin 11.4 G/DL (14.2-18.0) L Hematocrit 33.3 % (42.0-52.0) L Mean Corpuscular Volume 95 FL (80-99) Mean Corpuscular Hemoglobin 32.7 PG (27.0-31.0) H Mean Corpuscular Hemoglobin Concent 34.3 G/DL (32.0-36.0) Red Cell Distribution Width 11.8 % (11.6-14.8) Platelet Count 180 K/UL (150-450) Mean Platelet Volume 5.9 FL (6.5-10.1) L Neutrophils (%) (Auto) 57.0 % (45.0-75.0) Lymphocytes (%) (Auto) 30.8 % (20.0-45.0) Monocytes (%) (Auto) 10.9 % (1.0-10.0) H Eosinophils (%) (Auto) 0.9 % (0.0-3.0) Basophils (%) (Auto) 0.4 % (0.0-2.0) Erythrocyte Sedimentation Rate 43 MM/HR (0-15) H Sodium Level 142 MMOL/L (136-145) Potassium Level 4.2 MMOL/L (3.5-5.1) Chloride Level 109 MMOL/L (98-107) H Carbon Dioxide Level 24 MMOL/L (21-32) Anion Gap 9 (5-15) Blood Urea Nitrogen 62 mg/dL (7-18) H Creatinine 4.2 MG/DL (0.55-1.30) H Estimat Glomerular Filtration Rate 15.6 mL/min (>60) Glucose Level 104 MG/DL (74-106) Uric Acid 6.5 MG/DL (2.6-7.2) Calcium Level 7.8 MG/DL (8.5-10.1) L Phosphorus Level 3.7 MG/DL (2.5-4.9) Magnesium Level 1.7 MG/DL (1.8-2.4) L Total Bilirubin 0.5 MG/DL (0.2-1.0) Gamma Glutamyl Transpeptidase 40 U/L (5-85) Aspartate Amino Transf (AST/SGOT) 135 U/L (15-37) H Alanine Aminotransferase (ALT/SGPT) 159 U/L (12-78) H Alkaline Phosphatase 86 U/L (46-116) Total Creatine Kinase 4900 U/L (26-308) H C-Reactive Protein, Quantitative 3.2 mg/dL (0.00-0.90) H Pro-B-Type Natriuretic Peptide 2316 (0-125) H Total Protein 6.2 G/DL (6.4-8.2) L Albumin 2.9 G/DL (3.4-5.0) L Globulin 3.3 g/dL Albumin/Globulin Ratio 0.9 (1.0-2.7) L Height (Feet): 5 Height (Inches): 11.00 Weight (Pounds): 156 Medications Current Medications Medications (Trade) Dose Ordered Sig/Coral Route PRN Reason Start Time Stop Time Status Last Admin Dose Admin Acetaminophen (Tylenol) 650 mg Q4H PRN ORAL fever (temp>100.5 F) 04/11/17 12:00 05/10/17 11:59 Clonidine HCl (Catapres) 0.1 mg Q4H PRN ORAL SBP > 160 mmHg 04/11/17 14:45 05/10/17 06:44 Dextrose (Dextrose 50%) STAT PRN IV Hypoglycemia 04/11/17 11:30 05/11/17 11:29 Dextrose/Sodium Chloride 1,000 ml @ 125 mls/hr Q8H IV 04/12/17 12:00 05/12/17 11:59 04/12/17 09:20 Heparin Sodium (Porcine) (Heparin 5000 units/ml) 5,000 units EVERY 12 HOURS SUBQ 04/11/17 21:00 05/10/17 20:59 04/12/17 20:42 Lorazepam (Ativan 2mg/ml 1ml) 0.5 mg Q4H PRN IV For Anxiety 04/11/17 12:00 04/17/17 11:59 Morphine Sulfate (Morphine Sulfate) 1 mg Q4H PRN IVP PAIN 4-10 04/11/17 12:00 04/17/17 11:59 Ondansetron HCl (Zofran) 4 mg Q6H PRN IVP Nausea & Vomiting 04/11/17 12:45 05/10/17 06:44 Polyethylene Glycol (Miralax) 17 gm HSPRN PRN ORAL Constipation 04/11/17 21:00 05/11/17 20:59 Tamsulosin HCl (Flomax) 0.4 mg BID ORAL 04/11/17 18:00 05/11/17 09:29 04/12/17 18:22 Zolpidem Tartrate (Ambien) 5 mg HSPRN PRN ORAL Insomnia 04/11/17 21:00 04/18/17 20:59 Assessment/Plan Status: stable Assessment/Plan meth dependence anxiety d/o -no meds rec inpatient rehab Ian Latham M.D. Apr 12, 2017 23:51
--- NOTE | 2017-04-12 23:52 | General Progress Note ---
Assessment/Plan Status: stable, progressing Subjective Date patient seen: Apr 11, 2017 Neurologic/Psychiatric: Reports: anxiety, depressed, emotional problems Allergies: Coded Allergies: No Known Allergies (Unverified , 04/09/17) Objective Last 24 Hour Vital Signs Date Time Temp Pulse Resp B/P (MAP) Pulse Ox O2 Delivery O2 Flow Rate FiO2 04/12/17 19:53 98.1 66 18 142/79 98 Room Air 04/12/17 16:00 98.2 61 20 127/79 97 Room Air 04/12/17 12:00 98.2 58 20 146/86 98 Room Air 04/12/17 08:00 98.1 78 20 129/72 97 Room Air 04/12/17 04:00 98.7 75 20 120/64 97 Room Air Intake and Output 04/12/17 04/13/17 19:00 07:00 Intake Total 1720 ml Balance 1720 ml Intake Oral 320 ml IV Total 1400 ml # Voids 5 Laboratory Tests 04/12/17 07:25: White Blood Count 4.7L, Red Blood Count 3.49L, Hemoglobin 11.4L, Hematocrit 33.3L, Mean Corpuscular Volume 95, Mean Corpuscular Hemoglobin 32.7H, Mean Corpuscular Hemoglobin Concent 34.3, Red Cell Distribution Width 11.8, Platelet Count 180, Mean Platelet Volume 5.9L, Neutrophils (%) (Auto) 57.0, Lymphocytes ( %) (Auto) 30.8, Monocytes (%) (Auto) 10.9H, Eosinophils (%) (Auto) 0.9, Basophils (%) (Auto) 0.4, Erythrocyte Sedimentation Rate 43H, Sodium Level 142, Potassium Level 4.2, Chloride Level 109H, Carbon Dioxide Level 24, Anion Gap 9, Blood Urea Nitrogen 62H, Creatinine 4.2H, Estimat Glomerular Filtration Rate 15.6, Glucose Level 104, Uric Acid 6.5, Calcium Level 7.8L, Phosphorus Level 3.7 , Magnesium Level 1.7L, Total Bilirubin 0.5, Gamma Glutamyl Transpeptidase 40, Aspartate Amino Transf (AST/SGOT) 135H, Alanine Aminotransferase (ALT/SGPT) 159H , Alkaline Phosphatase 86, Total Creatine Kinase 4900H, C-Reactive Protein, Quantitative 3.2H, Pro-B-Type Natriuretic Peptide 2316H, Total Protein 6.2L, Albumin 2.9L, Globulin 3.3, Albumin/Globulin Ratio 0.9L Height (Feet): 5 Height (Inches): 11.00 Weight (Pounds): 156 General Appearance: no apparent distress, alert, thin Neurologic: alert, oriented x 3, responsive, normal mood/affect Ian Latham M.D. Apr 12, 2017 23:52
[2017-04-13] VITALS: BP 129/73
[2017-04-13] MEDS: D5NS 1,000 ML IV SCH ×2 (04:14→15:05)
[2017-04-13 08:16] VITALS: BP 127/74
--- NOTE | 2017-04-13 08:46 | Pulmonology Progress Note ---
Assessment/Plan Assessment/Plan ASSESSMENT acute toxic metabolic encephalopathy ( likely due to drug abuse, acute kidney failure) rhabdomyolysis acute renal failure due to rhabdo acute liver failure likely due to rhabdo methamphetamine abuse with dependency tobacco abuse cardiomyopathy with EF 45% myoglobinuria anxiety disorder PLAN OF CARE off tele, on [facility] floor now IVF nephro and cardio follows ECHO with EF 45-50% fup with cardio as outpatient in 2-3- weeks renal US negative renal parameters, CK trending down avoid nephrotoxic 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 on abstinence from street drugs declined Nicotine patch 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 on smoking cessation, will first try abstinence from drugs LFT trending down, likely due to rhabdo as well DVT prophayxlis bowel regimen watch IV fluids ( with hx of cardiomyopathy) psych follows, appreciate recommendations case discussed and evaluated by supervising physician Subjective Allergies: Coded Allergies: No Known Allergies (Unverified , 04/09/17) Subjective renal parameters improving denies chest pain, SOB, palpitations, abdominal pain still reports generalized weakness Objective Last 24 Hour Vital Signs Date Time Temp Pulse Resp B/P (MAP) Pulse Ox O2 Delivery O2 Flow Rate FiO2 04/13/17 00:00 97.5 75 18 129/73 98 Room Air 04/12/17 19:53 98.1 66 18 142/79 98 Room Air 04/12/17 16:00 98.2 61 20 127/79 97 Room Air 04/12/17 12:00 98.2 58 20 146/86 98 Room Air Objective General Appearance: WD/WN, no acute distress HEENT: normocephalic, atraumatic, anicteric, mucous membranes moist, PERRL Respiratory/Chest: chest wall non-tender, lungs clear, normal breath sounds, no respiratory distress, no accessory muscle use Cardiovascular: normal peripheral pulses, normal rate, regular rhythm Abdomen: normal bowel sounds, soft, non tender, non distended Extremities: no edema, pedal pulses normal Neurologic/Psychiatric: no motor/sensory deficits, alert, oriented x 3, responsive, normal mood/affect Musculoskeletal: normal muscle bulk Current Medications Medications (Trade) Dose Ordered Sig/Coral Route PRN Reason Start Time Stop Time Status Last Admin Dose Admin Acetaminophen (Tylenol) 650 mg Q4H PRN ORAL fever (temp>100.5 F) 04/11/17 12:00 05/10/17 11:59 Clonidine HCl (Catapres) 0.1 mg Q4H PRN ORAL SBP > 160 mmHg 04/11/17 14:45 05/10/17 06:44 Dextrose (Dextrose 50%) STAT PRN IV Hypoglycemia 04/11/17 11:30 05/11/17 11:29 Dextrose/Sodium Chloride 1,000 ml @ 125 mls/hr Q8H IV 04/12/17 12:00 05/12/17 11:59 04/12/17 21:00 Heparin Sodium (Porcine) (Heparin 5000 units/ml) 5,000 units EVERY 12 HOURS SUBQ 04/11/17 21:00 05/10/17 20:59 04/12/17 20:42 Lorazepam (Ativan 2mg/ml 1ml) 0.5 mg Q4H PRN IV For Anxiety 04/11/17 12:00 04/17/17 11:59 Morphine Sulfate (Morphine Sulfate) 1 mg Q4H PRN IVP PAIN 4-10 04/11/17 12:00 04/17/17 11:59 Ondansetron HCl (Zofran) 4 mg Q6H PRN IVP Nausea & Vomiting 04/11/17 12:45 05/10/17 06:44 Polyethylene Glycol (Miralax) 17 gm HSPRN PRN ORAL Constipation 04/11/17 21:00 05/11/17 20:59 Tamsulosin HCl (Flomax) 0.4 mg BID ORAL 04/11/17 18:00 05/11/17 09:29 04/12/17 18:22 Zolpidem Tartrate (Ambien) 5 mg HSPRN PRN ORAL Insomnia 04/11/17 21:00 04/18/17 20:59 Yariel RazaMarya espinosa NP Apr 13, 2017 08:46
[2017-04-13] MEDS: Tamsulosin 0.4mg cap ORAL SCH ×2 (08:53→17:42)
[2017-04-13] MEDS: Heparin 5000 units/ml inj SUBQ SCH ×2 (08:54→20:23)
[2017-04-13 09:24] LABS: BASOPHILS % (AUTO) 0.7 % (0.0-2.0); MEAN CORPUSCULAR HEMOGLOBIN 32.4 PG (27.0-31.0); MEAN CORPUSCULAR HGB CONC 34.6 G/DL (32.0-36.0); MEAN CORPUSCULAR VOLUME 94 FL (80-99); MEAN PLATELET VOLUME 6.2 FL (6.5-10.1); MONOCYTES % (AUTO) 11.4 % (1.0-10.0); NEUTROPHILS % (AUTO) 56.9 % (45.0-75.0); PLATELET COUNT 195 K/UL (150-450); RED BLOOD COUNT 3.56 M/UL (4.70-6.10); RED CELL DISTRIBUTION WIDTH 11.7 % (11.6-14.8); WHITE BLOOD COUNT 3.8 K/UL (4.8-10.8)
[2017-04-13 09:46] LABS: IRON 91 ug/dL (50-175); TOTAL IRON BINDING CAPACITY 220 ug/dL (250-450)
[2017-04-13 10:39] LABS: ALANINE AMINOTRANSFERASE 189 U/L (12-78); ALBUMIN/GLOBULIN RATIO 0.9 (1.0-2.7); ANION GAP 10 (5-15); ASPARTATE AMINO TRANSFERASE 105 U/L (15-37); CALCIUM 8.1 MG/DL (8.5-10.1); CARBON DIOXIDE 22 MMOL/L (21-32); CHLORIDE 105 MMOL/L (98-107); CREATININE 2.8 MG/DL (0.55-1.30); FERRITIN 271 NG/ML (8-388); POTASSIUM 3.7 MMOL/L (3.5-5.1); SODIUM 137 MMOL/L (136-145); TOTAL PROTEIN 6.1 G/DL (6.4-8.2); URIC ACID 5.3 MG/DL (2.6-7.2)
[2017-04-13 10:47] LABS: MAGNESIUM 1.4 MG/DL (1.8-2.4)
[2017-04-13 10:52] LABS: FOLIC ACID 10.8 NG/ML (3.1-17.5)
[2017-04-13 12:00] VITALS: BP 129/78
--- NOTE | 2017-04-13 12:56 | General Progress Note ---
Assessment/Plan Status: stable Status Narrative Cr 2.8 Assessment/Plan status: acute renal failure- Rhabdo- Multi drug abuse abnormal lfts cardiomyopathy plan: dc jones hydrate regular diet monitor renal parameters ad CK avoid nephrotoxics ? DC in am Subjective Allergies: Coded Allergies: No Known Allergies (Unverified , 04/09/17) Objective Last 24 Hour Vital Signs Date Time Temp Pulse Resp B/P (MAP) Pulse Ox O2 Delivery O2 Flow Rate FiO2 04/13/17 08:16 97.8 72 18 127/74 97 Room Air 04/13/17 00:00 97.5 75 18 129/73 98 Room Air 04/12/17 19:53 98.1 66 18 142/79 98 Room Air 04/12/17 16:00 98.2 61 20 127/79 97 Room Air Laboratory Tests 04/13/17 08:14: White Blood Count 3.8L, Red Blood Count 3.56L, Hemoglobin 11.5L, Hematocrit 33.3L, Mean Corpuscular Volume 94, Mean Corpuscular Hemoglobin 32.4H, Mean Corpuscular Hemoglobin Concent 34.6, Red Cell Distribution Width 11.7, Platelet Count 195, Mean Platelet Volume 6.2L, Neutrophils (%) (Auto) 56.9, Lymphocytes ( %) (Auto) 29.0, Monocytes (%) (Auto) 11.4H, Eosinophils (%) (Auto) 2.0, Basophils (%) (Auto) 0.7, Sodium Level 137, Potassium Level 3.7, Chloride Level 105, Carbon Dioxide Level 22, Anion Gap 10, Blood Urea Nitrogen 39H, Creatinine 2.8H, Estimat Glomerular Filtration Rate 25.0, Glucose Level 159H, Uric Acid 5.3 , Calcium Level 8.1L, Phosphorus Level 3.0, Magnesium Level 1.4L, Iron Level 91 , Total Iron Binding Capacity 220L, Percent Iron Saturation 41, Unsaturated Iron Binding 129, Ferritin 271, Total Bilirubin 0.5, Aspartate Amino Transf (AST /SGOT) 105H, Alanine Aminotransferase (ALT/SGPT) 189H, Alkaline Phosphatase 99, Total Creatine Kinase 1768H, Total Protein 6.1L, Albumin 2.9L, Globulin 3.2, Albumin/Globulin Ratio 0.9L, Vitamin B12 Level 389, Folate 10.8 Height (Feet): 5 Height (Inches): 11.00 Weight (Pounds): 156 General Appearance: no apparent distress Objective no signs of chf GLENROY ALVAREZ Apr 13, 2017 12:55
--- NOTE | 2017-04-13 14:48 | General Progress Note ---
Assessment/Plan Status: stable, progressing Subjective Neurologic/Psychiatric: Reports: anxiety, depressed, emotional problems Allergies: Coded Allergies: No Known Allergies (Unverified , 04/09/17) Objective Last 24 Hour Vital Signs Date Time Temp Pulse Resp B/P (MAP) Pulse Ox O2 Delivery O2 Flow Rate FiO2 04/13/17 08:16 97.8 72 18 127/74 97 Room Air 04/13/17 00:00 97.5 75 18 129/73 98 Room Air 04/12/17 19:53 98.1 66 18 142/79 98 Room Air 04/12/17 16:00 98.2 61 20 127/79 97 Room Air Laboratory Tests 04/13/17 08:14: White Blood Count 3.8L, Red Blood Count 3.56L, Hemoglobin 11.5L, Hematocrit 33.3L, Mean Corpuscular Volume 94, Mean Corpuscular Hemoglobin 32.4H, Mean Corpuscular Hemoglobin Concent 34.6, Red Cell Distribution Width 11.7, Platelet Count 195, Mean Platelet Volume 6.2L, Neutrophils (%) (Auto) 56.9, Lymphocytes ( %) (Auto) 29.0, Monocytes (%) (Auto) 11.4H, Eosinophils (%) (Auto) 2.0, Basophils (%) (Auto) 0.7, Sodium Level 137, Potassium Level 3.7, Chloride Level 105, Carbon Dioxide Level 22, Anion Gap 10, Blood Urea Nitrogen 39H, Creatinine 2.8H, Estimat Glomerular Filtration Rate 25.0, Glucose Level 159H, Uric Acid 5.3 , Calcium Level 8.1L, Phosphorus Level 3.0, Magnesium Level 1.4L, Iron Level 91 , Total Iron Binding Capacity 220L, Percent Iron Saturation 41, Unsaturated Iron Binding 129, Ferritin 271, Total Bilirubin 0.5, Aspartate Amino Transf (AST /SGOT) 105H, Alanine Aminotransferase (ALT/SGPT) 189H, Alkaline Phosphatase 99, Total Creatine Kinase 1768H, Total Protein 6.1L, Albumin 2.9L, Globulin 3.2, Albumin/Globulin Ratio 0.9L, Vitamin B12 Level 389, Folate 10.8 Height (Feet): 5 Height (Inches): 11.00 Weight (Pounds): 156 General Appearance: no apparent distress, alert, thin Neurologic: alert, oriented x 3, responsive, depressed affect Ian Latham M.D. Apr 13, 2017 14:47
[2017-04-13 16:00] VITALS: BP 131/76
--- NOTE | 2017-04-13 16:35 | Cardiology Progress Note ---
Assessment/Plan Assessment/Plan 1. Methamphetamine abuse. 2. Rhabdomyolysis. 3. Myoglobinuria. 4. Acute renal failure likely secondary to above. 5. Abnormal liver function test secondary to the rhabdomyolysis to rule out liver issues. 6. Tobacco abuse history. 7. Renal failure. 8. Mild systolic dysfunction pt informed of abn cardiac function with strong recommendation again any furth meth use !!! renal function improved further iv hydration on going watch for chf if dcd i have recommended that he fu with lozenge dough mixer in 2-3 weeks if he wishes he may fu in my office b12 injection Subjective ROS Limited/Unobtainable: Yes Cardiovascular: Denies: lightheadedness Respiratory: Denies: shortness of breath Gastrointestinal/Abdominal: Denies: abdomen distended Genitourinary: Denies: burning Objective Last 24 Hour Vital Signs Date Time Temp Pulse Resp B/P (MAP) Pulse Ox O2 Delivery O2 Flow Rate FiO2 04/13/17 08:16 97.8 72 18 127/74 97 Room Air 04/13/17 00:00 97.5 75 18 129/73 98 Room Air 04/12/17 19:53 98.1 66 18 142/79 98 Room Air General Appearance: alert Neck: no JVD Cardiovascular: normal rate, regular rhythm Respiratory/Chest: lungs clear, normal breath sounds Abdomen: normal bowel sounds, non tender, soft Extremities: no swelling Laboratory Tests Test 04/13/17 08:14 White Blood Count 3.8 K/UL (4.8-10.8) L Red Blood Count 3.56 M/UL (4.70-6.10) L Hemoglobin 11.5 G/DL (14.2-18.0) L Hematocrit 33.3 % (42.0-52.0) L Mean Corpuscular Volume 94 FL (80-99) Mean Corpuscular Hemoglobin 32.4 PG (27.0-31.0) H Mean Corpuscular Hemoglobin Concent 34.6 G/DL (32.0-36.0) Red Cell Distribution Width 11.7 % (11.6-14.8) Platelet Count 195 K/UL (150-450) Mean Platelet Volume 6.2 FL (6.5-10.1) L Neutrophils (%) (Auto) 56.9 % (45.0-75.0) Lymphocytes (%) (Auto) 29.0 % (20.0-45.0) Monocytes (%) (Auto) 11.4 % (1.0-10.0) H Eosinophils (%) (Auto) 2.0 % (0.0-3.0) Basophils (%) (Auto) 0.7 % (0.0-2.0) Sodium Level 137 MMOL/L (136-145) Potassium Level 3.7 MMOL/L (3.5-5.1) Chloride Level 105 MMOL/L (98-107) Carbon Dioxide Level 22 MMOL/L (21-32) Anion Gap 10 (5-15) Blood Urea Nitrogen 39 mg/dL (7-18) H Creatinine 2.8 MG/DL (0.55-1.30) H Estimat Glomerular Filtration Rate 25.0 mL/min (>60) Glucose Level 159 MG/DL (74-106) H Uric Acid 5.3 MG/DL (2.6-7.2) Calcium Level 8.1 MG/DL (8.5-10.1) L Phosphorus Level 3.0 MG/DL (2.5-4.9) Magnesium Level 1.4 MG/DL (1.8-2.4) L Iron Level 91 ug/dL (50-175) Total Iron Binding Capacity 220 ug/dL (250-450) L Percent Iron Saturation 41 % (15-50) Unsaturated Iron Binding 129 ug/dL (112-346) Ferritin 271 NG/ML (8-388) Total Bilirubin 0.5 MG/DL (0.2-1.0) Aspartate Amino Transf (AST/SGOT) 105 U/L (15-37) H Alanine Aminotransferase (ALT/SGPT) 189 U/L (12-78) H Alkaline Phosphatase 99 U/L (46-116) Total Creatine Kinase 1768 U/L (26-308) H Total Protein 6.1 G/DL (6.4-8.2) L Albumin 2.9 G/DL (3.4-5.0) L Globulin 3.2 g/dL Albumin/Globulin Ratio 0.9 (1.0-2.7) L Vitamin B12 Level 389 PG/ML (193-986) Folate 10.8 NG/ML (3.1-17.5) MALCOLM JOHNSON Apr 13, 2017 16:35
[2017-04-13 19:53] VITALS: BP 142/77
[2017-04-14] VITALS: BP 135/85
[2017-04-14 04:00] VITALS: BP 137/76
[2017-04-14] MEDS: D5NS 1,000 ML IV SCH (04:30)
[2017-04-14 08:00] VITALS: BP 138/75
[2017-04-14 08:48] LABS: BASOPHILS % (AUTO) 0.7 % (0.0-2.0); EOSINOPHILS % (AUTO) 3.1 % (0.0-3.0); LYMPHOCYTES % (AUTO) 35.8 % (20.0-45.0); MEAN CORPUSCULAR HEMOGLOBIN 31.9 PG (27.0-31.0); MEAN CORPUSCULAR HGB CONC 33.6 G/DL (32.0-36.0); MEAN CORPUSCULAR VOLUME 95 FL (80-99); MEAN PLATELET VOLUME 5.4 FL (6.5-10.1); MONOCYTES % (AUTO) 12.2 % (1.0-10.0); NEUTROPHILS % (AUTO) 48.2 % (45.0-75.0); PLATELET COUNT 221 K/UL (150-450); RED BLOOD COUNT 3.84 M/UL (4.70-6.10); RED CELL DISTRIBUTION WIDTH 11.6 % (11.6-14.8); WHITE BLOOD COUNT 4.7 K/UL (4.8-10.8)
[2017-04-14] MEDS: Heparin 5000 units/ml inj SUBQ SCH (09:00)
[2017-04-14 09:03] LABS: ALANINE AMINOTRANSFERASE 196 U/L (12-78); ALBUMIN/GLOBULIN RATIO 0.9 (1.0-2.7); ANION GAP 5 (5-15); ASPARTATE AMINO TRANSFERASE 72 U/L (15-37); CALCIUM 8.9 MG/DL (8.5-10.1); CARBON DIOXIDE 28 MMOL/L (21-32); CHLORIDE 105 MMOL/L (98-107); CREATININE 2.2 MG/DL (0.55-1.30); POTASSIUM 4.5 MMOL/L (3.5-5.1); SODIUM 138 MMOL/L (136-145); TOTAL PROTEIN 6.6 G/DL (6.4-8.2)
[2017-04-14 09:10] LABS: CRP QUANT 0.9 mg/dL (0.00-0.90); PHOSPHORUS 3.2 MG/DL (2.5-4.9); URIC ACID 4.6 MG/DL (2.6-7.2)
[2017-04-14] MEDS: Tamsulosin 0.4mg cap ORAL SCH (09:33)
--- NOTE | 2017-04-14 09:43 | Pulmonology Progress Note ---
Assessment/Plan Assessment/Plan ASSESSMENT acute toxic metabolic encephalopathy ( likely due to drug abuse, acute kidney failure) rhabdomyolysis acute renal failure due to rhabdo acute liver failure likely due to rhabdo methamphetamine abuse with dependency tobacco abuse cardiomyopathy with EF 45% myoglobinuria anxiety disorder PLAN OF CARE off tele, on [facility] floor now IVF nephro and cardio follows ECHO with EF 45-50% fup with cardio as outpatient in 2-3- weeks renal US negative renal parameters, creat down to 2.2 CK trending down -[id number] avoid nephrotoxic summer counselor on abstinence from street drugs declined Nicotine patch summer counselor on smoking cessation, will first try abstinence from drugs LFT trending down, likely due to rhabdo as well DVT prophayxlis bowel regimen psych follows, appreciate recommendations dc today fup with cardio in 2-3 weeks summer counselor on abstinence from street drugs case discussed and evaluated by supervising physician Subjective Allergies: Coded Allergies: No Known Allergies (Unverified , 04/09/17) Subjective renal parameters improving denies chest pain, SOB, palpitations, abdominal pain Objective Last 24 Hour Vital Signs Date Time Temp Pulse Resp B/P (MAP) Pulse Ox O2 Delivery O2 Flow Rate FiO2 04/14/17 04:00 97.3 59 18 137/76 97 Room Air 04/14/17 00:00 98.6 66 20 135/85 97 Room Air 04/13/17 19:53 98.4 75 18 142/77 98 Room Air 04/13/17 16:00 98.7 71 20 131/76 99 Room Air 04/13/17 12:00 98.1 75 18 129/78 99 Room Air Objective General Appearance: WD/WN, no acute distress HEENT: normocephalic, atraumatic, anicteric, mucous membranes moist, PERRL Respiratory/Chest: chest wall non-tender, lungs clear, normal breath sounds, no respiratory distress, no accessory muscle use Cardiovascular: normal peripheral pulses, normal rate, regular rhythm Abdomen: normal bowel sounds, soft, non tender, non distended Extremities: no edema, pedal pulses normal Neurologic/Psychiatric: no motor/sensory deficits, alert, oriented x 3, responsive, normal mood/affect Musculoskeletal: normal muscle bulk Laboratory Tests 04/14/17 06:30: White Blood Count 4.7L, Red Blood Count 3.84L, Hemoglobin 12.3L, Hematocrit 36.5L, Mean Corpuscular Volume 95, Mean Corpuscular Hemoglobin 31.9H, Mean Corpuscular Hemoglobin Concent 33.6, Red Cell Distribution Width 11.6, Platelet Count 221, Mean Platelet Volume 5.4L, Neutrophils (%) (Auto) 48.2, Lymphocytes ( %) (Auto) 35.8, Monocytes (%) (Auto) 12.2H, Eosinophils (%) (Auto) 3.1H, Basophils (%) (Auto) 0.7, Sodium Level 138, Potassium Level 4.5, Chloride Level 105, Carbon Dioxide Level 28, Anion Gap 5, Blood Urea Nitrogen 32H, Creatinine 2.2H, Estimat Glomerular Filtration Rate 33.0, Glucose Level 99, Uric Acid 4.6, Calcium Level 8.9, Phosphorus Level 3.2, Magnesium Level 2.0, Total Bilirubin 0.5, Aspartate Amino Transf (AST/SGOT) 72H, Alanine Aminotransferase (ALT/SGPT) 196H, Alkaline Phosphatase 110, Total Creatine Kinase 705H, C-Reactive Protein, Quantitative 0.9, Pro-B-Type Natriuretic Peptide 649H, Total Protein 6.6, Albumin 3.2L, Globulin 3.4, Albumin/Globulin Ratio 0.9L Current Medications Medications (Trade) Dose Ordered Sig/Coral Route PRN Reason Start Time Stop Time Status Last Admin Dose Admin Acetaminophen (Tylenol) 650 mg Q4H PRN ORAL fever (temp>100.5 F) 04/11/17 12:00 05/10/17 11:59 Clonidine HCl (Catapres) 0.1 mg Q4H PRN ORAL SBP > 160 mmHg 04/11/17 14:45 05/10/17 06:44 Dextrose (Dextrose 50%) STAT PRN IV Hypoglycemia 04/11/17 11:30 05/11/17 11:29 Dextrose/Sodium Chloride 1,000 ml @ 85 mls/hr [id number] IV 04/13/17 13:30 05/13/17 13:29 04/14/17 04:30 Heparin Sodium (Porcine) (Heparin 5000 units/ml) 5,000 units EVERY 12 HOURS SUBQ 04/11/17 21:00 05/10/17 20:59 04/13/17 20:23 Lorazepam (Ativan 2mg/ml 1ml) 0.5 mg Q4H PRN IV For Anxiety 04/11/17 12:00 04/17/17 11:59 Ondansetron HCl (Zofran) 4 mg Q6H PRN IVP Nausea & Vomiting 04/11/17 12:45 05/10/17 06:44 Polyethylene Glycol (Miralax) 17 gm HSPRN PRN ORAL Constipation 04/11/17 21:00 05/11/17 20:59 Tamsulosin HCl (Flomax) 0.4 mg BID ORAL 04/11/17 18:00 05/11/17 09:29 04/14/17 09:33 Zolpidem Tartrate (Ambien) 5 mg HSPRN PRN ORAL Insomnia 04/11/17 21:00 04/18/17 20:59 Yariel ([facility])Marya NP Apr 14, 2017 09:43
--- NOTE | 2017-04-14 10:23 | General Progress Note ---
Assessment/Plan Status: stable Status Narrative Cr 2.2 Assessment/Plan status: acute renal failure- Rhabdo- Multi drug abuse abnormal lfts cardiomyopathy plan: DC IV DC Home FU OP Subjective ROS Limited/Unobtainable: No Allergies: Coded Allergies: No Known Allergies (Unverified , 04/09/17) Objective Last 24 Hour Vital Signs Date Time Temp Pulse Resp B/P (MAP) Pulse Ox O2 Delivery O2 Flow Rate FiO2 04/14/17 08:00 97.7 72 18 138/75 98 Room Air 04/14/17 04:00 97.3 59 18 137/76 97 Room Air 04/14/17 00:00 98.6 66 20 135/85 97 Room Air 04/13/17 19:53 98.4 75 18 142/77 98 Room Air 04/13/17 16:00 98.7 71 20 131/76 99 Room Air 04/13/17 12:00 98.1 75 18 129/78 99 Room Air Laboratory Tests 04/14/17 06:30: White Blood Count 4.7L, Red Blood Count 3.84L, Hemoglobin 12.3L, Hematocrit 36.5L, Mean Corpuscular Volume 95, Mean Corpuscular Hemoglobin 31.9H, Mean Corpuscular Hemoglobin Concent 33.6, Red Cell Distribution Width 11.6, Platelet Count 221, Mean Platelet Volume 5.4L, Neutrophils (%) (Auto) 48.2, Lymphocytes ( %) (Auto) 35.8, Monocytes (%) (Auto) 12.2H, Eosinophils (%) (Auto) 3.1H, Basophils (%) (Auto) 0.7, Sodium Level 138, Potassium Level 4.5, Chloride Level 105, Carbon Dioxide Level 28, Anion Gap 5, Blood Urea Nitrogen 32H, Creatinine 2.2H, Estimat Glomerular Filtration Rate 33.0, Glucose Level 99, Uric Acid 4.6, Calcium Level 8.9, Phosphorus Level 3.2, Magnesium Level 2.0, Total Bilirubin 0.5, Aspartate Amino Transf (AST/SGOT) 72H, Alanine Aminotransferase (ALT/SGPT) 196H, Alkaline Phosphatase 110, Total Creatine Kinase 705H, C-Reactive Protein, Quantitative 0.9, Pro-B-Type Natriuretic Peptide 649H, Total Protein 6.6, Albumin 3.2L, Globulin 3.4, Albumin/Globulin Ratio 0.9L Height (Feet): 5 Height (Inches): 11.00 Weight (Pounds): 156 General Appearance: no apparent distress Objective no signs of chf GLENROY ALVAREZ Apr 14, 2017 10:23
[2017-04-14] MEDS ORDERED: D5NS 1000ml IV ONE ×3 (10:29)
--- NOTE | 2017-04-15 18:43 | General Progress Note ---
Assessment/Plan Status: stable, progressing Subjective Date patient seen: Apr 14, 2017 Constitutional: Reports: malaise, weakness Neurologic/Psychiatric: Reports: anxiety, depressed, emotional problems Allergies: Coded Allergies: No Known Allergies (Unverified , 04/09/17) Objective Height (Feet): 5 Height (Inches): 11.00 Weight (Pounds): 156 General Appearance: no apparent distress, alert, thin Neurologic: alert, oriented x 3, responsive, depressed affect Ian Latham M.D. Apr 15, 2017 18:43
--- NOTE | 2017-04-16 17:16 | Discharge Summary ---
Discharge Summary Hospital Course Date of Admission Apr 10, 2017 at 04:16 Date of Discharge Apr 14, 2017 at 10:30 Admitting Diagnosis NSTEMI HPI Tc Thornton is a 41 year old male who was admitted on Apr 10, 2017 at 04:16 for Nstemi Hospital Course dc summary # [id number] Discharge Medications Continued Medications: No Known Medications* (NKM - No Known Medications*) . 0 ., 0 Refills Discharge Condition Upon Discharge: stable Discharge Disposition Patient was discharged to Home (01) Discharge Diagnoses: Yariel ([facility]),Marya SALAS Apr 16, 2017 17:16
--- NOTE | 2017-04-17 17:45 | Discharge Summary 2 SIG ---
DATE OF ADMISSION: 04/10/2017 DATE OF DISCHARGE: 04/14/2017 HISTORY OF PRESENT ILLNESS: 41-year-old male was walked in to emergency room with his roommate. According to his roommate, the patient was not eating and not sleeping the whole week, since he was doing met. Roommate stated that the patient had visual hallucinations, changed all his passwords, and exhibited paranoid behavior. The patient denied other drug use. The patient stated that he was dehydrated, felt thirsty, but admitted to not drinking enough fluids, Upon evaluation in the emergency room, it was found that the patient had evidence of acute renal failure. Urine toxicology screen was positive for amphetamine, marijuana, and benzodiazepine. Troponin was negative, however, CK-MB was elevated- 58.7. The patient also exhibited liver failure with AST-530 and ALT -254. CK -29,560. EKG revealed normal sinus rhythm. No acute ischemic changes. The patient was admitted for further management. HOSPITAL COURSE: The patient was admitted. Nephrology and cardiology consults were requested along with psychiatric evaluation. The patient was on aggressive IV hydration, initially on the telemetry floor. Renal parameters, electrolytes, CK, and liver enzymes were closely monitored. Renal ultrasound revealed no evidence of hydronephrosis and normal echogenicity of bilateral kidneys. Acute renal failure and acute liver failure were likely secondary to rhabdomyolysis while rhabdomyolysis was due to the drug abuse/methamphetamine. Acute toxic metabolic encephalopathy was likely due to drug abuse as well as the acute kidney failure. Renal parameters trending down, creatinine down to 2.2, and CK down to 705 prior to discharge. LFTs were trending down. Initial AST- 530, down to 72 and ALT from 254 down to 196. The patient was counseled to avoid nephrotoxic and illicit street drugs/methamphetamine. The patient was counseled on abstinence from the street drugs. The patient was also counseled on smoking cessation. At this time, he declined nicotine patch. He will first try abstinence from mets. DVT prophylaxis provided. Bowel regimen provided. Button Maker had seen and evaluated the patient. Echocardiogram revealed ejection fraction of 45% to 50% and mild global hypokinesis. Chest x-ray revealed no evidence of acute cardiopulmonary disease. Repeated troponin was negative. Button Maker recommended to follow up with him as outpatient in 2 to 3 weeks. Bowel regimen instituted. DVT prophylaxis provided. Psychiatrist had seen and evaluated the patient. Diagnosed the patient with anxiety disorder. The patient was stable for discharge. FINAL DIAGNOSES: 1. Acute toxic metabolic encephalopathy, likely due to drug abuse and acute kidney failure. 2. Rhabdomyolysis, improving. 3. Acute renal failure due to the rhabdomyolysis. 4. Acute liver failure, likely due to rhabdomyolysis. 5. Methamphetamine abuse with dependency. 6. Tobacco abuse. 7. Cardiomyopathy with ejection fraction of 45%. 8. Myoglobinuria. 9. Anxiety disorder. DISCHARGE MEDICATIONS: No medication prescribed upon discharge. DISCHARGE INSTRUCTIONS: The patient was discharged home. Counseled on abstinence from street drugs. Follow up as an outpatient with impregnating helper in 2 to 3 weeks. Encourage liberal oral hydration. Counel on smoking cessation. Marnie Guzman M.D. [facility] N.PKaitlyn DR: [place] JOB#: [id number] CC: [id number]
--- NOTE | 2017-04-20 15:39 | Cardiology Report ---
APPROVED REPORT EKG Measurement Heart [id number] Normal sinus rhythm Prolonged QT Abnormal ECG
== END 2017-04-14 10:30 | disposition home or self-care (01) | DRG 92 ==
LOC: EMR 04-10 01:06 → 2W 04-10 04:16 → EDBD 04-10 04:16 → EDBEDREQ 04-10 04:43 → EDBEDREQSVC 04-10 08:04 → EDBEDREQ 04-10 08:04 → 2W 04-10 21:14 → 4E 04-11 12:46
DX: G92 Toxic encephalopathy (principal); F15.20 Other stimulant dependence, uncomplicated; N17.9 Acute kidney failure, unspecified; I42.9 Cardiomyopathy, unspecified; M62.82 Rhabdomyolysis; R82.1 Myoglobinuria; F17.200 Nicotine dependence, unspecified, uncomplicated; F41.9 Anxiety disorder, unspecified; F12.10 Cannabis abuse, uncomplicated; F13.10 Sedative, hypnotic or anxiolytic abuse, uncomplicated; K71.10 Toxic liver disease with hepatic necrosis, without coma; I25.2 Old myocardial infarction
CPT/HCPCS: 36415; 71010; 76775; 80053; 80061; 80300; 81001; 82436; 82533; 82550; 82553; 82607; 82728; 82746; 82977; 83036; 83540; 83550; 83735; 83880; 83930; 83935; 84100; 84133; 84300; 84439; 84443; 84481; 84484; 84550; 85025; 85651; 85730; 86140; 89050; 93005; 93306; J8499